=== PATIENT | female | born 1940 | race Caucasian/White ===

== ENCOUNTER → 2016-05-06 | Outpatient (CLI) | payer MEDICARE, BC ==
[2016-05-06 10:33] LABS: ABSOLUTE BASOPHILS # (AUTO) 0.1 10^3/uL (0.0-0.2); ABSOLUTE EOSINOPHILS # (AUTO) 0.1 10^3/uL (0.0-0.6); ABSOLUTE LYMPHOCYTES (AUTO) 0.7 10^3/uL (0.5-4.7); ABSOLUTE MONOCYTES (AUTO) 0.6 10^3/uL (0.1-1.4); ABSOLUTE NEUT (AUTO) 4.9 10^3/uL (1.7-8.2); BASOPHILS % (AUTO) 0.9 % (0-2); EOSINOPHILS % (AUTO) 1.3 % (0-6); HEMATOCRIT 35.7 % (36.0-47.0); HEMOGLOBIN 11.8 g/dL (12.0-15.5); HGB HCT DIFFERENCE -0.3; LYMPHOCYTES % (AUTO) 11.4 % (13-45); MEAN CORPUSCULAR HEMOGLOBIN 33.5 pg (27.0-33.4); MEAN CORPUSCULAR HGB CONC 33.1 g/dL (32.0-36.0); MEAN CORPUSCULAR VOLUME 101 fl (80-97); MONOCYTES % (AUTO) 9.3 % (3-13); RED BLOOD COUNT 3.53 10^6/uL (3.72-5.28); RED CELL DISTRIBUTION WIDTH 15.4 % (11.5-14.0); SEGMENTED NEUTROPHILS % (AUTO) 77.1 % (42-78); WHITE BLOOD COUNT 6.4 10^3/uL (4.0-10.5)
[2016-05-06 10:57] LABS: ALBUMIN 4.1 g/dL (3.5-5.0); BILIRUBIN,DIRECT 0.3 mg/dL (0.0-0.3); BILIRUBIN,TOTAL 0.7 mg/dL (0.2-1.3); TOTAL PROTEIN 6.6 g/dL (6.3-8.2)
== END ==
LOC: OD 09:34
PROVIDERS: ATTEND Internal Medicine Gastroenterology
DX: K51.00 Ulcerative (chronic) pancolitis without complications (principal)
CPT/HCPCS: 36415; 80076; 85025

== ENCOUNTER → 2016-07-17 | Outpatient (CLI) | payer MEDICARE, BC ==
[2016-07-17 10:09] LABS: ALANINE AMINOTRANSFERASE 66 U/L (9-52); ALBUMIN 4.6 g/dL (3.5-5.0); ALKALINE PHOSPHATASE 53 U/L (38-126); ANION GAP 11 (5-19); ASPARTATE AMINO TRANSFERASE 42 U/L (14-36); BILIRUBIN,DIRECT 0.5 mg/dL (0.0-0.4); BLOOD UREA NITROGEN 15 mg/dL (7-20); CALCIUM 9.6 mg/dL (8.4-10.2); CARBON DIOXIDE 28 mmol/L (22-30); CHLORIDE 90 mmol/L (98-107); CHOLESTEROL 219.29 mg/dL (0-200); CREATININE RESULT 0.72 mg/dL (0.52-1.25); Direct HDL 34 mg/dL (>40); GLUCOSE 96 mg/dL (75-110); POTASSIUM 4.9 mmol/L (3.6-5.0); SODIUM 129.1 mmol/L (137-145); TOTAL PROTEIN 7.1 g/dL (6.3-8.2); TRIGLYCERIDES 263 mg/dL (<150)
[2016-07-17 10:20] LABS: DIRECT LDL 103 mg/dL (<100)
[2016-07-17 10:24] LABS: VLDL CHOLESTEROL 52.6 mg/dL (10-31)
== END ==
LOC: OD 09:13
PROVIDERS: ATTEND Internal Medicine
DX: I25.10 Atherosclerotic heart disease of native coronary artery without angina pectoris (principal); Z98.61 Coronary angioplasty status; E78.4 Other hyperlipidemia; I42.8 Other cardiomyopathies; I10 Essential (primary) hypertension; R94.5 Abnormal results of liver function studies; Z79.899 Other long term (current) drug therapy
CPT/HCPCS: 36415; 80053; 80061

== ENCOUNTER → 2016-07-30 | Outpatient (CLI) | payer MEDICARE, BC ==
[2016-07-30 10:37] LABS: ABSOLUTE EOSINOPHILS # (AUTO) 0.1 10^3/uL (0.0-0.6); ABSOLUTE LYMPHOCYTES (AUTO) 0.7 10^3/uL (0.5-4.7); ABSOLUTE MONOCYTES (AUTO) 0.6 10^3/uL (0.1-1.4); ABSOLUTE NEUT (AUTO) 3.5 10^3/uL (1.7-8.2); BASOPHILS % (AUTO) 0.5 % (0-2); EOSINOPHILS % (AUTO) 2.6 % (0-6); HEMATOCRIT 36.6 % (36.0-47.0); HEMOGLOBIN 12.4 g/dL (12.0-15.5); HGB HCT DIFFERENCE 0.6; LYMPHOCYTES % (AUTO) 13.7 % (13-45); MEAN CORPUSCULAR HEMOGLOBIN 34.5 pg (27.0-33.4); MEAN CORPUSCULAR VOLUME 102 fl (80-97); MONOCYTES % (AUTO) 11.9 % (3-13); RED BLOOD COUNT 3.61 10^6/uL (3.72-5.28); RED CELL DISTRIBUTION WIDTH 14.4 % (11.5-14.0); SEGMENTED NEUTROPHILS % (AUTO) 71.3 % (42-78); WHITE BLOOD COUNT 4.9 10^3/uL (4.0-10.5)
[2016-07-30 11:14] LABS: ALANINE AMINOTRANSFERASE 58 U/L (9-52); ALBUMIN 4.3 g/dL (3.5-5.0); ALKALINE PHOSPHATASE 52 U/L (38-126); ASPARTATE AMINO TRANSFERASE 38 U/L (14-36); BILIRUBIN,DIRECT 0.4 mg/dL (0.0-0.4); BILIRUBIN,TOTAL 0.7 mg/dL (0.2-1.3)
== END ==
LOC: OD 10:08
PROVIDERS: ATTEND Internal Medicine Gastroenterology
DX: K51.00 Ulcerative (chronic) pancolitis without complications (principal)
CPT/HCPCS: 36415; 80076; 85025

== ENCOUNTER → 2016-09-26 | Outpatient (CLI) | payer MEDICARE, BC ==
--- NOTE | 2016-09-26 17:16 | RADIOLOGY REPORT (SQ) ---
EXAM DESCRIPTION: MRI HEAD WITHOUT COMPLETED DATE/TIME: 09/26/2016 4:58 pm REASON FOR STUDY: HEMIPLEGIA, UNSPECIFIED G81.91 HEMIPLEGIA, UNSPECIFIED AFFECTING RIGHT DOMINANT S LAVERNE COMPARISON: None. TECHNIQUE: Multiplanar imaging includes non-contrasted T1, T2, FLAIR, and diffusion with ADC map seq uences. Images stored on PACS. LIMITATIONS: None. FINDINGS: ANATOMY: No developmental anomalies. Normal vascular flow voids. Pituitary fossa normal. CSF SPACES: Normal in size and contour. No hemorrhage. CEREBRUM: Sulci and gyri normal in size and contour. Age-appropriate spotty increased bifrontal whit e matter signal on FLAIR imaging from minimal chronic small vessel disease. . No evidence of hemorr elroy, mass, or extraaxial fluid collection. POSTERIOR FOSSA: Tiny nonhemorrhagic early subacute pontine infarct, positive on diffusion image 10, seen as increased FLAIR/ T2 signal on image 10. No hemorrhagic staining. No local mass effect. Rem ainder of the posterior fossa structures are otherwise unremarkable. DIFFUSION IMAGING: Negative for acute or sub-acute infarction. ORBITS: No masses. Post left cataract surgery. PARANASAL SINUSES: No fluid levels. Mucosa normal. OTHER: Minimal fluid left mastoid air cells. IMPRESSION: Tiny nonhemorrhagic early subacute infarct left vijaya. COMMENT: Pertinent findings on the imaging study reported as a CRITICAL RESULT to Wendy SAN at 17:00 on 09/26/2016. Category of Critical Result: Nonhemorrhagic acute or subacute infarct TECHNICAL DOCUMENTATION: JOB ID: [id number] [employer]- All Rights Reserved
== END ==
LOC: RAD 16:05
PROVIDERS: ATTEND Physician Assistant
DX: G81.91 Hemiplegia, unspecified affecting right dominant side (principal)
CPT/HCPCS: 70551

== ENCOUNTER → 2016-11-08 | Outpatient (CLI) | payer MEDICARE, BC ==
[2016-11-08 13:34] LABS: ABSOLUTE BASOPHILS # (AUTO) 0.1 10^3/uL (0.0-0.2); ABSOLUTE EOSINOPHILS # (AUTO) 0.1 10^3/uL (0.0-0.6); ABSOLUTE LYMPHOCYTES (AUTO) 0.8 10^3/uL (0.5-4.7); ABSOLUTE MONOCYTES (AUTO) 0.8 10^3/uL (0.1-1.4); BASOPHILS % (AUTO) 1.1 % (0-2); EOSINOPHILS % (AUTO) 1.9 % (0-6); HEMATOCRIT 37.6 % (36.0-47.0); HEMOGLOBIN 12.9 g/dL (12.0-15.5); HGB HCT DIFFERENCE 1.1; LYMPHOCYTES % (AUTO) 12.4 % (13-45); MEAN CORPUSCULAR HEMOGLOBIN 34.5 pg (27.0-33.4); MEAN CORPUSCULAR HGB CONC 34.3 g/dL (32.0-36.0); MEAN CORPUSCULAR VOLUME 101 fl (80-97); RED BLOOD COUNT 3.74 10^6/uL (3.72-5.28); SEGMENTED NEUTROPHILS % (AUTO) 72.6 % (42-78); WHITE BLOOD COUNT 6.9 10^3/uL (4.0-10.5)
[2016-11-08 13:55] LABS: ALANINE AMINOTRANSFERASE 109 U/L (9-52); ALBUMIN 4.6 g/dL (3.5-5.0); ALKALINE PHOSPHATASE 72 U/L (38-126); ASPARTATE AMINO TRANSFERASE 53 U/L (14-36); BILIRUBIN,DIRECT 0.9 mg/dL (0.0-0.4); TOTAL PROTEIN 7.5 g/dL (6.3-8.2)
== END ==
LOC: OD 12:30
PROVIDERS: ATTEND Internal Medicine Gastroenterology
DX: K51.00 Ulcerative (chronic) pancolitis without complications (principal)
CPT/HCPCS: 36415; 80076; 85025

== ENCOUNTER → 2016-11-26 | Outpatient (CLI) | payer MEDICARE, BC ==
--- NOTE | 2016-11-27 13:57 | WOMENS IMAGING REPORT ---
EXAM DESCRIPTION: 3D SCREENING MAMMO BILAT COMPLETED DATE/TIME: 11/26/2016 10:45 am REASON FOR STUDY: SCREENING MAMMO; Z12.31 COMPARISON: Multiple since 2008 TECHNIQUE: Standard craniocaudal and mediolateral oblique views of each breast recorded using digita l acquisition and breast tomosynthesis. LIMITATIONS: None. FINDINGS: Findings present which are benign by mammographic criteria. No suspicious masses, calcifi cations or architectural distortion. Pertinent benign findings: Stable benign bilateral breast parenchymal calcifications Read with the assistance of CAD. .[facility] - R2 Cenova Version 1.3 .[facility] - R2 Cenova Version 1.3 .[facility] - R2 Cenova Version 2.4 .[facility] - R2 Cenova Version 2.4 .[facility] - R2 Rn Case Manager Version 9.2 Benign mammographic findings may include one or more of the following: Smooth masses, popcorn/rim/co arse calcifications, asymmetries, post-procedure changes, and lesions with long-standing stability. IMPRESSION: BENIGN MAMMOGRAPHIC FINDINGS. BIRADS 2 BREAST DENSITY: b. There are scattered areas of fibroglandular density. BIRAD: 2 BENIGN FINDING(S) RECOMMENDATION: RECOMMENDATION: ROUTINE SCREENING Please continue yearly bilateral screening tomosynthesis in October 2017 COMMENT: The patient has been notified of the results by letter per SA requirements. Additional no tification policies are in place for contacting patient with suspicious or incomplete findings. Quality ID #[id number]: The [employer] recommends an annual screening mammogram for women aged 40 years or over. This facility utilizes a reminder system to ensure that all patients receive reminder letters, and/or direct phone calls for appointments. This includes reminders for routine scr eening mammograms, diagnostic mammograms, or other Breast Imaging Interventions when appropriate. Th is patient will be placed in the appropriate reminder system. The [employer] (ACR) has developed recommendations for screening MRI of the breast s in certain patient populations, to be used in conjunction with mammography. Breast MRI surveillanc e may be appropriate for women with more than 20% lifetime risk of developing breast cancer as deter mined by genetic testing, significant family history of the disease, or history of mantle radiation f or Hodgkins Disease. ACR Practice Guidelines 2008. DBT Technology DBT is a type of tomographic mammography. With conventional mammography, overlapping breast tissue ma y make lesions difficult to detect, even with good compression. DBT uses an x-ray tube that rotates a round the breast, taking images at different angles. These images are then combined to create thin sl ices of the breast that the radiologist can view as a 3D reconstruction. The Hologic unit can perform full-field digital mammograms (2D imaging); or DBT (3D imaging); or both, in a combination mode that quickly performs both the mammogram and the tomosynthesis scan while the breast is still compressed. PQRS 6045F: Fluoroscopic imaging is not utilized for breast tomosynthesis. TECHNICAL DOCUMENTATION: FINDING NUMBER: (1) ASSESSMENT: (1) JOB ID: [id number] [employer]- All Rights Reserved
== END ==
LOC: WI 09:05
PROVIDERS: ATTEND Internal Medicine
DX: Z12.31 Encounter for screening mammogram for malignant neoplasm of breast (principal)
CPT/HCPCS: 77063; G0202; 77067

== ENCOUNTER → 2016-11-28 | Outpatient (CLI) | payer MEDICARE, BC ==
--- NOTE | 2016-12-03 19:08 | XCELERA REPORT ---
[address] [address] Transthoracic Echocardiogram Report Name: VAN DARLING Age: 76 yrs Gender: Female : 1940 Patient Status: Outpatient Patient Location: Study Date: 11/28/2016 11:05 AM Procedure: A two-dimensional transthoracic echocardiogram with color flow and Doppler was performed. Study Quality: Fair. Reason For Study: CP R07.9 History: CP R07.9. Ordering Physician: CHERYL UP Performed By: Tone Salvador Interpretation Summary The left ventricle is normal in size. There is normal left ventricular wall thickness. LV EF is 55% Left ventricular systolic function is low normal. Doppler measurements suggest impaired left ventricular relaxation, which is associated with grade I/IV or mild diastolic dysfunction Probably no regional wall motion abnormality. There is no thrombus. The right ventricle is normal in size and function. The left atrial size is normal. There is no evidence of mitral valve prolapse. There is no vegetation seen on the mitral valve. There is no mitral valve stenosis. There is a trace to mild amount of mitral regurgitation There is no aortic valve stenosis There is no LVOT obstruction. There is a mild amount of aortic regurgitation There is no tricuspid stenosis. There is a trace to mild amount of tricuspid regurgitation There is mild pulmonary hypertension by echo RVSP is 35 mm of Hg , with RA mean of 10. There is no pericardial effusion. MMode/2D Measurements & Calculations RVDd: 2.0 cm LVIDd: 4.2 cm FS: 27.9 % Ao root diam: 3.4 cm IVSd: 1.0 cm LVIDs: 3.0 cm EDV(Teich): 79.2 ml Ao root area: 9.3 cm2 LVPWd: 0.90 cm ESV(Teich): 36.1 ml EF(Teich): 54.4 % Doppler Measurements & Calculations MV E max april: MV dec slope: Ao V2 max: AI max april: 62.9 cm/sec 252.4 cm/sec2 111.8 cm/sec 387.2 cm/sec MV A max april: MV dec time: Ao max PG: AI max P.2 cm/sec 0.25 sec 5.0 mmHg 60.1 mmHg MV E/A: 0.52 AI dec slope: 239.7 cm/sec2 AI P1/2t: 473.0 msec LV V1 max PG: PA V2 max: TR max april: RAP systole: 3.0 mmHg 74.0 cm/sec 270.3 cm/sec 5.0 mmHg LV V1 max: PA max P.2 mmHgTR max P.2 cm/sec 29.2 mmHg RVSP(TR): 34.2 mmHg Left Ventricle The left ventricle is normal in size. There is normal left ventricular wall thickness. LV EF is 55%. Left ventricular systolic function is low normal. Doppler measurements suggest impaired left ventricular relaxation, which is associated with grade I/IV or mild diastolic dysfunction. Probably no regional wall motion abnormality. There is no thrombus. Right Ventricle The right ventricle is normal in size and function. Atria The right atrium is normal. The left atrial size is normal. Mitral Valve There is no evidence of mitral valve prolapse. There is no vegetation seen on the mitral valve. There is no mitral valve stenosis. There is a trace to mild amount of mitral regurgitation. Aortic Valve There is no aortic valvular vegetation. There is no aortic valve stenosis. There is no LVOT obstruction. There is a mild amount of aortic regurgitation. Tricuspid Valve There is no tricuspid stenosis. There is a trace to mild amount of tricuspid regurgitation. There is mild pulmonary hypertension by echo. RVSP is 35 mm of Hg , with RA mean of 10. Pulmonic Valve There is no pulmonic valvular stenosis. There is a trace amount of pulmonic regurgitation. Great Vessels The aortic root is normal size. Effusions There is no pericardial effusion. : CHERYL UP > Cheryl Up
== END ==
LOC: SP 10:45
PROVIDERS: ATTEND Specialist
DX: R07.9 Chest pain, unspecified (principal)
CPT/HCPCS: 93306

== ENCOUNTER → 2016-12-04 | Outpatient (CLI) | payer MEDICARE, BC ==
[2016-12-04 11:48] LABS: ALANINE AMINOTRANSFERASE 61 U/L (9-52); ALBUMIN 4.5 g/dL (3.5-5.0); ALKALINE PHOSPHATASE 62 U/L (38-126); ASPARTATE AMINO TRANSFERASE 36 U/L (14-36)
== END ==
LOC: OD 10:32
PROVIDERS: ATTEND Internal Medicine Gastroenterology
DX: R94.5 Abnormal results of liver function studies (principal)
CPT/HCPCS: 36415; 80076

== ENCOUNTER → 2017-01-16 | Outpatient (CLI) | payer MEDICARE, BC ==
[2017-01-16 10:09] LABS: ALANINE AMINOTRANSFERASE 156 U/L (9-52); ALBUMIN 4.3 g/dL (3.5-5.0); ALKALINE PHOSPHATASE 61 U/L (38-126); ANION GAP 12 (5-19); ASPARTATE AMINO TRANSFERASE 63 U/L (14-36); BILIRUBIN,DIRECT 1.1 mg/dL (0.0-0.4); BILIRUBIN,TOTAL 1.1 mg/dL (0.2-1.3); BLOOD UREA NITROGEN 17 mg/dL (7-20); CALCIUM 9.1 mg/dL (8.4-10.2); CARBON DIOXIDE 29 mmol/L (22-30); CHLORIDE 90 mmol/L (98-107); CHOLESTEROL 171.65 mg/dL (0-200); CREATININE RESULT 0.85 mg/dL (0.52-1.25); Direct HDL 41 mg/dL (>40); GLUCOSE 102 mg/dL (75-110); POTASSIUM 4.7 mmol/L (3.6-5.0); SODIUM 130.9 mmol/L (137-145); TOTAL PROTEIN 6.9 g/dL (6.3-8.2); TRIGLYCERIDES 94 mg/dL (<150)
[2017-01-16 10:20] LABS: DIRECT LDL 89 mg/dL (<100)
== END ==
LOC: OD 09:04
PROVIDERS: ATTEND Internal Medicine
DX: I25.10 Atherosclerotic heart disease of native coronary artery without angina pectoris (principal); Z98.61 Coronary angioplasty status; E78.4 Other hyperlipidemia; I42.8 Other cardiomyopathies; I10 Essential (primary) hypertension; R94.5 Abnormal results of liver function studies; Z79.899 Other long term (current) drug therapy
CPT/HCPCS: 36415; 80053; 80061

== ENCOUNTER → 2017-02-06 | Outpatient (CLI) | payer MEDICARE, BC ==
[2017-02-06 13:58] LABS: ALANINE AMINOTRANSFERASE 122 U/L (9-52); ALBUMIN 4.7 g/dL (3.5-5.0); ALKALINE PHOSPHATASE 62 U/L (38-126); ASPARTATE AMINO TRANSFERASE 58 U/L (14-36); BILIRUBIN,DIRECT 0.9 mg/dL (0.0-0.4); BILIRUBIN,TOTAL 1.3 mg/dL (0.2-1.3); BLOOD UREA NITROGEN 12 mg/dL (7-20); CALCIUM 9.7 mg/dL (8.4-10.2); CARBON DIOXIDE 30 mmol/L (22-30); CHLORIDE 85 mmol/L (98-107); CREATININE RESULT 0.79 mg/dL (0.52-1.25); GLUCOSE 117 mg/dL (75-110); POTASSIUM 4.5 mmol/L (3.6-5.0); TOTAL PROTEIN 7.3 g/dL (6.3-8.2)
[2017-02-06 13:59] LABS: ANION GAP 12 (5-19)
[2017-02-06 14:05] LABS: ALANINE AMINOTRANSFERASE 122 U/L (9-52); ALBUMIN 4.7 g/dL (3.5-5.0); ALKALINE PHOSPHATASE 62 U/L (38-126); ASPARTATE AMINO TRANSFERASE 58 U/L (14-36); BILIRUBIN,DIRECT 0.9 mg/dL (0.0-0.4); BILIRUBIN,TOTAL 1.3 mg/dL (0.2-1.3)
[2017-02-06 14:06] LABS: TOTAL PROTEIN 7.3 g/dL (6.3-8.2)
== END ==
LOC: OD 12:18
PROVIDERS: ATTEND Internal Medicine Gastroenterology
DX: R94.5 Abnormal results of liver function studies (principal); E55.9 Vitamin D deficiency, unspecified; R63.5 Abnormal weight gain; E87.1 Hypo-osmolality and hyponatremia
CPT/HCPCS: 36415; 80053; 80076; 82306; 84443

== ENCOUNTER → 2017-02-10 | Outpatient (CLI) | payer MEDICARE, BC ==
[2017-02-11 07:42] LABS: HEPATITIS C VIRUS AB <0.1 s/co ratio (0.0-0.9)
== END ==
LOC: OD 09:07
PROVIDERS: ATTEND Internal Medicine Gastroenterology
DX: R94.5 Abnormal results of liver function studies (principal)
CPT/HCPCS: 36415; 86038; 86235; 86256; 86706; 86803; 86804; 87340

== ENCOUNTER → 2017-02-10 | Outpatient (CLI) | payer MEDICARE, BC ==
--- NOTE | 2017-02-10 12:00 | WOMENS IMAGING REPORT ---
EXAM DESCRIPTION: U/S ABDOMEN LIMITED COMPLETED DATE/TIME: 02/10/2017 10:23 am REASON FOR STUDY: ABNORMAL RESULTS OF LIVER FUNCTION; R94.5 R94.5 ABNORMAL RESULTS OF LIVER FUNCTIO N STUDIES COMPARISON: None. TECHNIQUE: Dynamic and static grayscale images acquired of the abdomen and recorded on PACS. Additio nal selected color Doppler and spectral images recorded. LIMITATIONS: None. FINDINGS: PANCREAS: No masses. No peripancreatic edema or fluid collections. LIVER: Echotexture is coarse with increased echogenicity consistent with fatty infiltration. LIVER VASCULATURE: Normal directional flow of the main portal vein and hepatic veins. GALLBLADDER: Surgically absent. ULTRASOUND-DETECTED WHITTAKER'S SIGN: Not applicable. INTRAHEPATIC DUCTS AND COMMON DUCT: CBD and intrahepatic ducts normal caliber. No filling defects. INFERIOR VENA CAVA: Normal flow. AORTA: No aneurysm. RIGHT KIDNEY: Normal size. 3.5 cm cyst. No solid or suspicious masses. No hydronephrosis. No calcifications. PERITONEAL AND RIGHT PLEURAL SPACE: No ascites or effusions. OTHER: No other significant finding. IMPRESSION: Fatty liver. No acute findings. TECHNICAL DOCUMENTATION: JOB ID: [id number]- All Rights Reserved
== END ==
LOC: WI 09:45
PROVIDERS: ATTEND Internal Medicine Gastroenterology
DX: R94.5 Abnormal results of liver function studies (principal)
CPT/HCPCS: 76705

== ENCOUNTER → 2017-03-12 | Outpatient (CLI) | payer MEDICARE, BC ==
[2017-03-12 11:52] LABS: ABSOLUTE BASOPHILS # (AUTO) 0.1 10^3/uL (0.0-0.2); ABSOLUTE EOSINOPHILS # (AUTO) 0.1 10^3/uL (0.0-0.6); ABSOLUTE LYMPHOCYTES (AUTO) 0.8 10^3/uL (0.5-4.7); ABSOLUTE MONOCYTES (AUTO) 0.6 10^3/uL (0.1-1.4); ABSOLUTE NEUT (AUTO) 4.7 10^3/uL (1.7-8.2); BASOPHILS % (AUTO) 1.5 % (0-2); EOSINOPHILS % (AUTO) 1.8 % (0-6); HEMATOCRIT 37.9 % (36.0-47.0); HEMOGLOBIN 12.9 g/dL (12.0-15.5); HGB HCT DIFFERENCE 0.8; LYMPHOCYTES % (AUTO) 12.7 % (13-45); MEAN CORPUSCULAR HEMOGLOBIN 35.6 pg (27.0-33.4); MEAN CORPUSCULAR VOLUME 105 fl (80-97); MONOCYTES % (AUTO) 9.2 % (3-13); RED BLOOD COUNT 3.61 10^6/uL (3.72-5.28); RED CELL DISTRIBUTION WIDTH 14.9 % (11.5-14.0); SEGMENTED NEUTROPHILS % (AUTO) 74.8 % (42-78); WHITE BLOOD COUNT 6.2 10^3/uL (4.0-10.5)
[2017-03-12 12:21] LABS: ALANINE AMINOTRANSFERASE 51 U/L (9-52); ALBUMIN 4.6 g/dL (3.5-5.0); ALKALINE PHOSPHATASE 49 U/L (38-126); ASPARTATE AMINO TRANSFERASE 35 U/L (14-36); BILIRUBIN,DIRECT 0.9 mg/dL (0.0-0.4); BILIRUBIN,TOTAL 0.9 mg/dL (0.2-1.3); TOTAL PROTEIN 6.7 g/dL (6.3-8.2)
== END ==
LOC: OD 10:38
PROVIDERS: ATTEND Internal Medicine Gastroenterology
DX: K51.00 Ulcerative (chronic) pancolitis without complications (principal)
CPT/HCPCS: 36415; 80076; 85025

== ENCOUNTER → 2017-05-01 | Outpatient (CLI) | payer MEDICARE, BC ==
[2017-05-01 10:50] LABS: ALANINE AMINOTRANSFERASE 53 U/L (9-52); ALBUMIN 4.7 g/dL (3.5-5.0); ALKALINE PHOSPHATASE 65 U/L (38-126); ANION GAP 8 (5-19); ASPARTATE AMINO TRANSFERASE 44 U/L (14-36); BILIRUBIN,DIRECT 1.3 mg/dL (0.0-0.4); BILIRUBIN,TOTAL 1.3 mg/dL (0.2-1.3); BLOOD UREA NITROGEN 20 mg/dL (7-20); CARBON DIOXIDE 30 mmol/L (22-30); CHLORIDE 90 mmol/L (98-107); GLUCOSE 105 mg/dL (75-110); POTASSIUM 4.8 mmol/L (3.6-5.0); SODIUM 127.9 mmol/L (137-145); TOTAL PROTEIN 7.3 g/dL (6.3-8.2)
== END ==
LOC: OD 09:45
PROVIDERS: ATTEND Internal Medicine
DX: E55.9 Vitamin D deficiency, unspecified (principal); R63.5 Abnormal weight gain; E87.1 Hypo-osmolality and hyponatremia
CPT/HCPCS: 36415; 80053; 82306; 84443

== ENCOUNTER → 2017-06-10 | Outpatient (CLI) | payer MEDICARE, BC ==
[2017-06-10 10:59] LABS: ABSOLUTE EOSINOPHILS # (AUTO) 0.1 10^3/uL (0.0-0.6); ABSOLUTE LYMPHOCYTES (AUTO) 0.8 10^3/uL (0.5-4.7); ABSOLUTE MONOCYTES (AUTO) 0.6 10^3/uL (0.1-1.4); BASOPHILS % (AUTO) 0.7 % (0-2); EOSINOPHILS % (AUTO) 2.2 % (0-6); HEMATOCRIT 37.9 % (36.0-47.0); HEMOGLOBIN 12.8 g/dL (12.0-15.5); LYMPHOCYTES % (AUTO) 13.7 % (13-45); MEAN CORPUSCULAR HEMOGLOBIN 34.1 pg (27.0-33.4); MEAN CORPUSCULAR HGB CONC 33.9 g/dL (32.0-36.0); MEAN CORPUSCULAR VOLUME 101 fl (80-97); MONOCYTES % (AUTO) 10.9 % (3-13); PLATELET COUNT 228 10^3/uL (150-450); RED BLOOD COUNT 3.76 10^6/uL (3.72-5.28); RED CELL DISTRIBUTION WIDTH 14.4 % (11.5-14.0); SEGMENTED NEUTROPHILS % (AUTO) 72.5 % (42-78); TOTAL CELLS COUNTED % (AUTO) 100 %; WHITE BLOOD COUNT 5.5 10^3/uL (4.0-10.5)
[2017-06-10 11:25] LABS: ALANINE AMINOTRANSFERASE 54 U/L (9-52); ALBUMIN 4.7 g/dL (3.5-5.0); ALKALINE PHOSPHATASE 54 U/L (38-126); ASPARTATE AMINO TRANSFERASE 33 U/L (14-36); BILIRUBIN,DIRECT 0.9 mg/dL (0.0-0.4); BILIRUBIN,TOTAL 0.9 mg/dL (0.2-1.3); TOTAL PROTEIN 7.1 g/dL (6.3-8.2)
== END ==
LOC: OD 10:01
PROVIDERS: ATTEND Internal Medicine Gastroenterology
DX: K51.00 Ulcerative (chronic) pancolitis without complications (principal)
CPT/HCPCS: 36415; 80076; 85025

== ENCOUNTER → 2017-07-15 | Outpatient (CLI) | payer MEDICARE, BC ==
[2017-07-15 11:04] LABS: ABSOLUTE EOSINOPHILS # (AUTO) 0.1 10^3/uL (0.0-0.6); ABSOLUTE LYMPHOCYTES (AUTO) 0.8 10^3/uL (0.5-4.7); ABSOLUTE MONOCYTES (AUTO) 0.7 10^3/uL (0.1-1.4); ABSOLUTE NEUT (AUTO) 3.8 10^3/uL (1.7-8.2); BASOPHILS % (AUTO) 0.7 % (0-2); EOSINOPHILS % (AUTO) 2.4 % (0-6); HEMATOCRIT 35.8 % (36.0-47.0); LYMPHOCYTES % (AUTO) 15.4 % (13-45); MEAN CORPUSCULAR HEMOGLOBIN 35.6 pg (27.0-33.4); MEAN CORPUSCULAR HGB CONC 33.5 g/dL (32.0-36.0); MEAN CORPUSCULAR VOLUME 106 fl (80-97); MONOCYTES % (AUTO) 12.3 % (3-13); PLATELET COUNT 205 10^3/uL (150-450); RED BLOOD COUNT 3.37 10^6/uL (3.72-5.28); RED CELL DISTRIBUTION WIDTH 15.6 % (11.5-14.0); SEGMENTED NEUTROPHILS % (AUTO) 69.2 % (42-78); TOTAL CELLS COUNTED % (AUTO) 100 %; WHITE BLOOD COUNT 5.5 10^3/uL (4.0-10.5)
[2017-07-15 11:29] LABS: ALANINE AMINOTRANSFERASE 70 U/L (9-52); ALBUMIN 4.2 g/dL (3.5-5.0); ALKALINE PHOSPHATASE 49 U/L (38-126); ASPARTATE AMINO TRANSFERASE 46 U/L (14-36); TOTAL PROTEIN 6.8 g/dL (6.3-8.2)
== END ==
LOC: OD 09:41
PROVIDERS: ATTEND Internal Medicine Gastroenterology
DX: K51.00 Ulcerative (chronic) pancolitis without complications (principal)
CPT/HCPCS: 36415; 80076; 85025

== ENCOUNTER → 2017-08-19 | Outpatient (CLI) | payer MEDICARE, BC ==
[2017-08-19 11:00] LABS: ABSOLUTE EOSINOPHILS # (AUTO) 0.1 10^3/uL (0.0-0.6); ABSOLUTE LYMPHOCYTES (AUTO) 0.8 10^3/uL (0.5-4.7); ABSOLUTE MONOCYTES (AUTO) 0.6 10^3/uL (0.1-1.4); ABSOLUTE NEUT (AUTO) 4.6 10^3/uL (1.7-8.2); BASOPHILS % (AUTO) 0.6 % (0-2); HEMATOCRIT 39.7 % (36.0-47.0); HEMOGLOBIN 13.4 g/dL (12.0-15.5); LYMPHOCYTES % (AUTO) 12.9 % (13-45); MEAN CORPUSCULAR HEMOGLOBIN 34.4 pg (27.0-33.4); MEAN CORPUSCULAR HGB CONC 33.7 g/dL (32.0-36.0); MEAN CORPUSCULAR VOLUME 102 fl (80-97); MONOCYTES % (AUTO) 9.3 % (3-13); PLATELET COUNT 203 10^3/uL (150-450); RED CELL DISTRIBUTION WIDTH 14.2 % (11.5-14.0); SEGMENTED NEUTROPHILS % (AUTO) 75.2 % (42-78); TOTAL CELLS COUNTED % (AUTO) 100 %; WHITE BLOOD COUNT 6.1 10^3/uL (4.0-10.5)
[2017-08-19 11:24] LABS: ALANINE AMINOTRANSFERASE 43 U/L (9-52); ALBUMIN 4.4 g/dL (3.5-5.0); ALKALINE PHOSPHATASE 57 U/L (38-126); ANION GAP 14 (5-19); ASPARTATE AMINO TRANSFERASE 37 U/L (14-36); BILIRUBIN,DIRECT 0.6 mg/dL (0.0-0.4); BILIRUBIN,TOTAL 0.8 mg/dL (0.2-1.3); BLOOD UREA NITROGEN 17 mg/dL (7-20); CALCIUM 10.1 mg/dL (8.4-10.2); CARBON DIOXIDE 31 mmol/L (22-30); CHLORIDE 95 mmol/L (98-107); CHOLESTEROL 257.64 mg/dL (0-200); GLUCOSE 111 mg/dL (75-110); NEONATAL BILIRUBIN RESULT 0.2 mg/dL (0.1-1.1); POTASSIUM 4.7 mmol/L (3.6-5.0); TOTAL PROTEIN 7.4 g/dL (6.3-8.2); TRIGLYCERIDES 200 mg/dL (<150)
[2017-08-19 11:35] LABS: DIRECT LDL 151 mg/dL (<100)
[2017-08-19 11:38] LABS: ALBUMIN 4.4 g/dL (3.5-5.0); BILIRUBIN,DIRECT 0.6 mg/dL (0.0-0.4); BILIRUBIN,TOTAL 0.8 mg/dL (0.2-1.3); NEONATAL BILIRUBIN RESULT 0.2 mg/dL (0.1-1.1); TOTAL PROTEIN 7.4 g/dL (6.3-8.2)
== END ==
LOC: OD 09:38
PROVIDERS: ATTEND Internal Medicine
DX: E55.9 Vitamin D deficiency, unspecified (principal); E78.2 Mixed hyperlipidemia; I10 Essential (primary) hypertension; D63.8 Anemia in other chronic diseases classified elsewhere; R94.5 Abnormal results of liver function studies
CPT/HCPCS: 36415; 80053; 80061; 80076; 82306; 85025

== ENCOUNTER → 2017-11-11 | Outpatient (CLI) | payer MEDICARE, BC ==
[2017-11-11 10:51] LABS: ABSOLUTE EOSINOPHILS # (AUTO) 0.2 10^3/uL (0.0-0.6); ABSOLUTE LYMPHOCYTES (AUTO) 0.8 10^3/uL (0.5-4.7); ABSOLUTE MONOCYTES (AUTO) 0.5 10^3/uL (0.1-1.4); ABSOLUTE NEUT (AUTO) 3.3 10^3/uL (1.7-8.2); BASOPHILS % (AUTO) 0.7 % (0-2); EOSINOPHILS % (AUTO) 3.2 % (0-6); HEMATOCRIT 39.8 % (36.0-47.0); HEMOGLOBIN 13.6 g/dL (12.0-15.5); LYMPHOCYTES % (AUTO) 15.9 % (13-45); MEAN CORPUSCULAR HEMOGLOBIN 33.8 pg (27.0-33.4); MEAN CORPUSCULAR HGB CONC 34.1 g/dL (32.0-36.0); MEAN CORPUSCULAR VOLUME 99 fl (80-97); MONOCYTES % (AUTO) 10.6 % (3-13); PLATELET COUNT 236 10^3/uL (150-450); RED BLOOD COUNT 4.03 10^6/uL (3.72-5.28); SEGMENTED NEUTROPHILS % (AUTO) 69.6 % (42-78); TOTAL CELLS COUNTED % (AUTO) 100 %; WHITE BLOOD COUNT 4.8 10^3/uL (4.0-10.5)
[2017-11-11 11:10] LABS: ALANINE AMINOTRANSFERASE 62 U/L (9-52); ALBUMIN 4.6 g/dL (3.5-5.0); ALKALINE PHOSPHATASE 59 U/L (38-126); ASPARTATE AMINO TRANSFERASE 40 U/L (14-36); BILIRUBIN,DIRECT 0.9 mg/dL (0.0-0.4); TOTAL PROTEIN 7.4 g/dL (6.3-8.2)
== END ==
LOC: OD 10:00
PROVIDERS: ATTEND Internal Medicine Gastroenterology
DX: K51.00 Ulcerative (chronic) pancolitis without complications (principal)
CPT/HCPCS: 36415; 80076; 85025

== ENCOUNTER → 2018-04-28 | Outpatient (CLI) | payer MEDICARE, BC ==
[2018-04-28 10:51] LABS: ABSOLUTE BASOPHILS # (AUTO) 0.1 10^3/uL (0.0-0.2); ABSOLUTE EOSINOPHILS # (AUTO) 0.1 10^3/uL (0.0-0.6); ABSOLUTE LYMPHOCYTES (AUTO) 1.1 10^3/uL (0.5-4.7); ABSOLUTE MONOCYTES (AUTO) 0.5 10^3/uL (0.1-1.4); BASOPHILS % (AUTO) 1.4 % (0-2); EOSINOPHILS % (AUTO) 2.8 % (0-6); HEMATOCRIT 37.9 % (36.0-47.0); LYMPHOCYTES % (AUTO) 23.6 % (13-45); MEAN CORPUSCULAR HEMOGLOBIN 34.3 pg (27.0-33.4); MEAN CORPUSCULAR HGB CONC 34.2 g/dL (32.0-36.0); MEAN CORPUSCULAR VOLUME 100 fl (80-97); MONOCYTES % (AUTO) 10.2 % (3-13); PLATELET COUNT 205 10^3/uL (150-450); RED BLOOD COUNT 3.78 10^6/uL (3.72-5.28); RED CELL DISTRIBUTION WIDTH 15.1 % (11.5-14.0); TOTAL CELLS COUNTED % (AUTO) 100 %; WHITE BLOOD COUNT 4.8 10^3/uL (4.0-10.5)
[2018-04-28 11:17] LABS: ALANINE AMINOTRANSFERASE 28 U/L (9-52); ALBUMIN 4.7 g/dL (3.5-5.0); ALKALINE PHOSPHATASE 56 U/L (38-126); ANION GAP 11 (5-19); ASPARTATE AMINO TRANSFERASE 25 U/L (14-36); BILIRUBIN,DIRECT 0.5 mg/dL (0.0-0.4); BILIRUBIN,TOTAL 0.7 mg/dL (0.2-1.3); BLOOD UREA NITROGEN 27 mg/dL (7-20); CALCIUM 9.7 mg/dL (8.4-10.2); CARBON DIOXIDE 30 mmol/L (22-30); CHLORIDE 97 mmol/L (98-107); CHOLESTEROL 301.98 mg/dL (0-200); GLUCOSE 103 mg/dL (75-110); POTASSIUM 4.1 mmol/L (3.6-5.0); SODIUM 138.1 mmol/L (137-145); TOTAL PROTEIN 7.3 g/dL (6.3-8.2); TRIGLYCERIDES 205 mg/dL (<150)
[2018-04-28 11:31] LABS: DIRECT LDL 172 mg/dL (<100)
== END ==
LOC: OD 09:38
PROVIDERS: ATTEND Internal Medicine
DX: E78.2 Mixed hyperlipidemia (principal); D63.8 Anemia in other chronic diseases classified elsewhere; I10 Essential (primary) hypertension
CPT/HCPCS: 36415; 80053; 80061; 85025

== ENCOUNTER → 2018-07-14 | Outpatient (CLI) | payer MEDICARE, BC ==
[2018-07-14 10:13] LABS: HEMATOCRIT 40.9 % (36.0-47.0); HEMOGLOBIN 13.9 g/dL (12.0-15.5); MEAN CORPUSCULAR HEMOGLOBIN 33.5 pg (27.0-33.4); MEAN CORPUSCULAR HGB CONC 33.9 g/dL (32.0-36.0); MEAN CORPUSCULAR VOLUME 99 fl (80-97); PLATELET COUNT 219 10^3/uL (150-450); RED BLOOD COUNT 4.14 10^6/uL (3.72-5.28); RED CELL DISTRIBUTION WIDTH 15.1 % (11.5-14.0); WHITE BLOOD COUNT 4.4 10^3/uL (4.0-10.5)
[2018-07-14 10:46] LABS: ALANINE AMINOTRANSFERASE 34 U/L (9-52); ALBUMIN 4.3 g/dL (3.5-5.0); ALKALINE PHOSPHATASE 52 U/L (38-126); ANION GAP 7 (5-19); ASPARTATE AMINO TRANSFERASE 28 U/L (14-36); BILIRUBIN,DIRECT 0.6 mg/dL (0.0-0.4); BILIRUBIN,TOTAL 0.8 mg/dL (0.2-1.3); BLOOD UREA NITROGEN 16 mg/dL (7-20); CALCIUM 10.2 mg/dL (8.4-10.2); CARBON DIOXIDE 31 mmol/L (22-30); CHLORIDE 97 mmol/L (98-107); CHOLESTEROL 267.79 mg/dL (0-200); GLUCOSE 108 mg/dL (75-110); SODIUM 134.5 mmol/L (137-145); TOTAL PROTEIN 7.4 g/dL (6.3-8.2); TRIGLYCERIDES 224 mg/dL (<150)
[2018-07-14 10:58] LABS: DIRECT LDL 156 mg/dL (<100)
[2018-07-14 11:04] LABS: VLDL CHOLESTEROL 44.8 mg/dL (10-31)
[2018-07-14 11:06] LABS: ALANINE AMINOTRANSFERASE 34 U/L (9-52); ALBUMIN 4.3 g/dL (3.5-5.0); ALKALINE PHOSPHATASE 52 U/L (38-126); ANION GAP 7 (5-19); ASPARTATE AMINO TRANSFERASE 28 U/L (14-36); BILIRUBIN,DIRECT 0.6 mg/dL (0.0-0.4); BILIRUBIN,TOTAL 0.8 mg/dL (0.2-1.3); BLOOD UREA NITROGEN 16 mg/dL (7-20); CALCIUM 10.2 mg/dL (8.4-10.2); CARBON DIOXIDE 31 mmol/L (22-30); CHLORIDE 97 mmol/L (98-107); CHOLESTEROL 267.79 mg/dL (0-200); DIRECT LDL 156 mg/dL (<100); GLUCOSE 108 mg/dL (75-110); SODIUM 134.5 mmol/L (137-145); TOTAL PROTEIN 7.4 g/dL (6.3-8.2); TRIGLYCERIDES 224 mg/dL (<150); VLDL CHOLESTEROL 44.8 mg/dL (10-31)
[2018-07-14 11:09] LABS: ALANINE AMINOTRANSFERASE 34 U/L (9-52); ALBUMIN 4.3 g/dL (3.5-5.0); ALKALINE PHOSPHATASE 52 U/L (38-126); ANION GAP 7 (5-19); ASPARTATE AMINO TRANSFERASE 28 U/L (14-36); BILIRUBIN,DIRECT 0.6 mg/dL (0.0-0.4); BILIRUBIN,TOTAL 0.8 mg/dL (0.2-1.3); BLOOD UREA NITROGEN 16 mg/dL (7-20); CALCIUM 10.2 mg/dL (8.4-10.2); CARBON DIOXIDE 31 mmol/L (22-30); CHLORIDE 97 mmol/L (98-107); CHOLESTEROL 267.79 mg/dL (0-200); DIRECT LDL 156 mg/dL (<100); GLUCOSE 108 mg/dL (75-110); SODIUM 134.5 mmol/L (137-145); TOTAL PROTEIN 7.4 g/dL (6.3-8.2); TRIGLYCERIDES 224 mg/dL (<150); VLDL CHOLESTEROL 44.8 mg/dL (10-31)
== END ==
LOC: OD 09:10
PROVIDERS: ATTEND Internal Medicine Gastroenterology
DX: I25.10 Atherosclerotic heart disease of native coronary artery without angina pectoris (principal); Z98.61 Coronary angioplasty status; E78.49 Other hyperlipidemia; I42.8 Other cardiomyopathies; I10 Essential (primary) hypertension; R94.5 Abnormal results of liver function studies; I48.0 Paroxysmal atrial fibrillation; K51.00 Ulcerative (chronic) pancolitis without complications; E78.00 Pure hypercholesterolemia, unspecified; N28.9 Disorder of kidney and ureter, unspecified; Z79.899 Other long term (current) drug therapy
CPT/HCPCS: 36415; 80048; 80053; 80061; 80076; 85027

== ENCOUNTER 2018-09-30 09:46 | Observation (INO) | payer MEDICARE, BC ==
--- NOTE | 2018-09-30 10:11 | ER Document Report ---
ED Neuro Symptoms/Deficit - General Chief Complaint: Numbness of Arm Stated Complaint: WEAKNESS Time Seen by Provider: 09/30/18 10:04 Primary Care Provider: KAYLEEN REHMAN MD [Primary Care Provider] - Follow up as needed TRAVEL OUTSIDE OF THE [place] IN LAST 30 DAYS: No - HPI Notes: Patient is a 78-year-old female that presents to the emergency department for chief complaint of numbness and weakness. Patient presented by EMS from [facility]. She states that this morning she noticed she was having a hard time holding onto her utensils while eating breakfast with her right hand. She also states while taking her morning medications she was unable to keep the water in her mouth and spilled it twice. She reports numbness in her right arm and difficulty with coordination in the right arm. She states that nursing providers came in her room at midnight to change her depends and she felt normal then. At 6 AM when she was taking her medication she noticed the symptoms. Patient reports history of 2 mini strokes in the past. She is also complaining of "heartburn" which she describes as a burning sensation in her epigastrium radiating into her midsternal region. She denies dyspnea or palpitations. She states she does have heartburn which she takes Zantac for and this feels identical but she has not had her Zantac yet today and did eat pancakes for breakfast. She denies fever, chills, nausea, vomiting, Vision changes and headache. Past Medical History: TIAs, hypertension, CAD, CHF Past Surgical History: Reviewed in chart Social History: Lives at [facility]. Denies tobacco and alcohol use Family History: Reviewed and noncontributory for presenting illness Allergies: Reviewed, see documented allergy list. REVIEW OF SYSTEMS: CONSTITUTIONAL : No fever No chills No diaphoresis No recent illness EENT: No vision changes No congestion No sore throat CARDIOVASCULAR: No chest pain No palpitations RESPIRATORY: No shortness of breath No cough No difficulty breathing GASTROINTESTINAL: No abdominal pain No nausea No vomiting No diarrhea GENITOURINARY: No dysuria No hematuria No difficulty urinating MUSCULOSKELETAL: No back pain No leg pain No arm pain SKIN: No rashes No lesions LYMPHATIC: No swollen, enlarged glands. NEUROLOGICAL: No lightheadedness No headache weakness paresthesias PSYCHIATRIC: No anxiety No depression PHYSICAL EXAMINATION: Vital signs reviewed, nursing noted reviewed. GENERAL: Well-appearing, well-nourished and in no acute distress. HEAD: Atraumatic, normocephalic. EYES: Eyes appear normal, extraocular movements intact, sclera anicteric, conjunctiva are normal. ENT: nares patent, oropharynx clear without exudates. Moist mucous membranes. NECK: Normal range of motion, supple without lymphadenopathy LUNGS: Breath sounds clear to auscultation bilaterally and equal. No wheezes rales or rhonchi. HEART: Regular rate and rhythm without murmurs ABDOMEN: Soft, nontender, normoactive bowel sounds. No rebound, guarding, or rigidity. No masses appreciated. EXTREMITIES: Nontender, good range of motion, no pitting or edema. NEUROLOGICAL: NIH equals 2. Right lower facial droop, right arm paresthesia. Moves all extremities spontaneously Motor grossly intact on exam. PSYCH: Normal mood, normal affect. SKIN: Warm, Dry, normal turgor, no rashes or lesions noted on exposed skin - Related Data Allergies/Adverse Reactions: erythromycin base [Erythromycin Base] Allergy (Verified 01/04/14 01:11) infliximab [From Remicade] Allergy (Verified 01/04/14 01:11) CHF latex [Latex] Allergy (Verified 01/04/14 01:11) Fusgmoe-Lmy-Toi Reductase Inhibitor Allergy (Verified 01/04/14 01:11) IVP DYE Allergy (Uncoded 01/04/14 01:11) ITCHING/HIVES SHELL FISH Allergy (Uncoded 01/04/14 01:11) ITCHING/HIVES Past Medical History - Social History Smoking Status: Unknown if Ever Smoked Family History: Arthritis, CAD, CVA, DM, Hyperlipidemia, Hypertension Patient has suicidal ideation: No Patient has homicidal ideation: No - Past Medical History Cardiac Medical History: Reports: Hx Atrial Fibrillation, Hx Congestive Heart Failure, Hx Coronary Artery Disease, Hx Heart Attack - CHF D/T REMICADE, Hx Hypercholesterolemia, Hx Hypertension Pulmonary Medical History: Neurological Medical History: Endocrine Medical History: Reports: Hx Diabetes Mellitus Type 2 Renal/ Medical History: Denies: Hx Peritoneal Dialysis GI Medical History: Reports: Hx Ulcer - COLON, Hx Ulcerative Colitis Musculoskeletal Medical History: Reports Hx Arthritis, Reports Hx Musculoskeletal Deformity - scoliosis, kyphosis Psychiatric Medical History: Denies: Hx Depression Infectious Medical History: Past Surgical History: Reports: Hx Appendectomy, Hx Cardiac Catheterization, Hx Coronary Stent, Hx Hysterectomy, Hx Oral Surgery. Denies: Hx Mastectomy, Hx Open Heart Surgery, Hx Pacemaker - Immunizations Immunizations up to date: Yes Hx Diphtheria, Pertussis, Tetanus Vaccination: Yes Hx Pneumococcal Vaccination: 03/31/07 Physical Exam - Vital signs Vitals: Pulse Resp BP Pulse Ox 81 24 H 128/47 H 98 09/30/18 10:02 09/30/18 10:02 09/30/18 10:02 09/30/18 10:02 Course - Re-evaluation Re-evalutation: 09/30/18 10:11 Vitals reviewed. Nursing notes reviewed. Patient symptoms were present when she woke up around 6 AM this morning and she is outside the window for TPA. She is also not a candidate for TPA because her NIH is only 2 and her symptoms are minor. 09/30/18 11:26 patient re-evaluated and is unchanged. NIH=2. she has passed her swallow study and was given aspirin for suspected stroke. CT brain shows no acute int racranial abnormality. The remainder of her work-up is unremarkable. Patient will be admitted to the hospital for further stroke assessment. Her care was discussed with Dr. Bonds who accepts admission. Patient in agreement with plan of care. Laboratory 09/30/18 09/30/18 09/30/18 09:31 09:31 09:31 WBC 5.5 RBC 3.53 L Hgb 11.5 L Hct 34.7 L MCV 98 H MCH 32.6 MCHC 33.2 RDW 16.4 H Plt Count 204 Seg Neutrophils % 71.6 Lymphocytes % 17.0 Monocytes % 9.9 Eosinophils % 0.0 Basophils % 1.5 Absolute Neutrophils 3.9 Absolute Lymphocytes 0.9 Absolute Monocytes 0.5 Absolute Eosinophils 0.0 Absolute Basophils 0.1 PT 15.1 INR 1.18 APTT 39.1 H Sodium 130.7 L Potassium 3.8 Chloride 83 L Carbon Dioxide 34 H Anion Gap 14 BUN 14 Creatinine 0.89 Est GFR ( Amer) > 60 Est GFR (Non-Af Amer) > 60 Glucose 180 H Calcium 8.8 Total Bilirubin 0.7 Direct Bilirubin 0.7 H Neonat Total Bilirubin Not Reportable Neonat Direct Bilirubin Not Reportable Neonat Indirect Bili Not Reportable AST 52 H ALT 33 Alkaline Phosphatase 65 Creatine Kinase < 20 L CK-MB (CK-2) Troponin I Total Protein 7.5 Albumin 3.4 L 09/30/18 09:31 WBC RBC Hgb Hct MCV MCH MCHC RDW Plt Count Seg Neutrophils % Lymphocytes % Monocytes % Eosinophils % Basophils % Absolute Neutrophils Absolute Lymphocytes Absolute Monocytes Absolute Eosinophils Absolute Basophils PT INR APTT Sodium Potassium Chloride Carbon Dioxide Anion Gap BUN Creatinine Est GFR ( Amer) Est GFR (Non-Af Amer) Glucose Calcium Total Bilirubin Direct Bilirubin Neonat Total Bilirubin Neonat Direct Bilirubin Neonat Indirect Bili AST ALT Alkaline Phosphatase Creatine Kinase CK-MB (CK-2) 0.36 Troponin I < 0.012 Total Protein Albumin Head CT 09/30/18 00:00 IMPRESSION: MILD CHRONIC MICROVASCULAR ISCHEMIA. NO ACUTE IMAGING FINDINGS IN THE BRAIN. EVIDENCE OF ACUTE STROKE: NO. Chest X-Ray 09/30/18 10:05 IMPRESSION: NO ACUTE RADIOGRAPHIC FINDING IN THE CHEST. - Vital Signs Vital signs: Temp Pulse Resp BP Pulse Ox 81 24 H 128/47 H 98 09/30/18 10:02 09/30/18 10:02 09/30/18 10:02 09/30/18 10:02 - Laboratory Result Diagrams: 09/30/18 09:31 09/30/18 09:31 ED NIH Stroke Scale - NIH Stroke Scale *: 1. NIH scale should be completed with appropriate accompanying assessment tools. *: 2. The NIH should reflect what the patient is capable of doing and should not be coached by the clinician. 1a. Level of Consciousness: 0=Alert;keenly responsive -: 1=Drowsy -: 2=Obtunded -: 3=Coma/unresponsive or reflex to noxious stimuli. 1a. Responses: 0 1b. Orientation Questions: a. What month is it? -: b. How old are you? -: 0=Answers both questions correctly. -: 1=Answers one question correctly or patient is intubated or has orotracheal trauma. -: 2=Answers neither question correctly. 1b. Responses: 0 1c. Response to commands: a. Open and close eyes? -: b. Produce Runner and release hand? -: Credit is given despite weakness. Demonstration of task is permitted. Substitute command if hands cannot be used. -: 0=Performs both tasks correctly -: 1=Performs one task correctly -: 2=Performs neither task correctly 1c. Responses: 0 2. Gaze: Establish eye contact and instruct patient to "Follow my finger" -: 0=Normal -: 1=Partial gaze palsy. Gaze is abnormal in one or both eyes, but where forced deviation or total gaze paresis is not present. -: 2=Forced deviation or total gaze paresis. 2. Responses: 0 3. Visual Le: Sees fingers in all four quadrants. -: 0=No visual loss. -: 1=Partial hemianopsia. -: 2=Complete hemianopsia. -: 3=Bilateral hemianopsia (including Cortical blindness) 3. Responses: 0 4. Facial Movement: Instruct patient to: -: a. Show me your teeth -: b. Raise your eyebrows -: c. Close your eyes -: d. Smile -: 0=Normal symmetrical movement -: 1=Minor paralysis (flattened nasolabial fold, asymmetry on smiling). -: 2=Partial paralysis (total or near total paralysis of lower face). -: 3=Complete paralysis of upper and lower face 4. Responses: 1 5. Motor functions (left arm): Alternate sides and extend each arm with palms down (90 degrees if sitting or 45 degrees for supine). -: 0=No drift;limb holds for full 10 seconds. -: 1=Drift; limb holds but drifts down before full 10 seconds, but does not hit bed. -: 2=Some effort against gravity; limb cannot get to or maintain position. -: 3=No effort against gravity; limb falls. -: 4=No movement. -: UN=Amputation, joint fusion, explain in comments. 5. Responses (left arm): 0 5. Motor Functions (right arm): Alternate sides and extend each arm with palms down (90 degrees if sitting or 45 degrees for supine). -: 0=No drift;limb holds for full 10 seconds. -: 1=Drift; limb holds but drifts down before full 10 seconds, but does not hit bed. -: 2=Some effort against gravity; limb cannot get to or maintain position. -: 3=No effort against gravity; limb falls. -: 4=No movement. -: UN=Amputation, joint fusion, explain in comments. 5. Responses (right arm): 0 6. Motor Functions (left leg): With patient lying supine, alternate sides and extend each leg (30 degrees always while supine). -: 0=No drift, leg holds position for full 5 seconds -: 1=Drift; leg falls before full 5 seconds but does not hit bed. -: 2=Some effort against gravity, leg falls to bed but some effort against gravity. -: 3=No effort against gravity, leg falls to bed immediately. -: 4=No movement. -: UN=Amputation, joint fusion; explain in comments. 6. Responses (left leg): 0 6. Motor Functions (right leg): With patient lying supine, alternate sides and e xtend each leg (30 degrees always while supine). -: 0=No drift, leg holds position for full 5 seconds -: 1=Drift; leg falls before full 5 seconds but does not hit bed. -: 2=Some effort against gravity, leg falls to bed but some effort against gravity. -: 3=No effort against gravity, leg falls to bed immediately. -: 4=No movement. -: UN=Amputation, joint fusion; explain in comments. 6. Responses (right leg): 0 7. Limb Ataxia: With eyes open instruct patient to: -: a. "Touch your finger to your nose". -: b. "Touch your heel to your tellez" -: 0=Absent -: 1=Present in one limb. -: 2=Present in two limbs. -: UN=Amputation or joint fusion; explain in comments. 7. Responses: 0 8. Sensory: Test sensation using pinprick or noxious stimuli. Test as many body parts as possible. -: 0=Normal;no sensory loss -: 1=Mile to moderate sensory loss (patient feels pin prick but is less sharp on affected side). -: 2=Severe or total sensory loss. 8. Responses: 1 9. Best Language: Instruct patient to: -: a. "Describe what you see in this picture." -: b. "Name the items in this picture." -: c. "Read these sentences." -: 0=No aphasia, normal -: 1=Mild to moderate aphasia. -: 2=Severe aphasia -: 3=Mute, global aphasia, no usable speech or auditory comprehension. 9. Responses: 0 10. Articulation, Dysarthia: Instruct patient to: -: "Read these words" or "Repeat these words" -: 0=Normal -: 1=Mild to moderate; patient may slur some words but can be understood without difficulty. -: 2=Severe; patients speech so slurred as to be unintelligible in the absence of dysphasia. -: UN=Intubated or other physical barrier, explain in comments. 10. Responses: 0 11. Extinction or inattention: 0=No abnormality -: 1= Visual, tactile, auditory, spatial, or personal inattention or extinction to bilateral simulation in one or the sensory modalities. -: 2=Profound autumn-inattention or autumn-inattention to more than one modality; does not recognize own hand. 11. Responses: 0 Total Score: 2 Discharge - Discharge Clinical Impression: Weakness on right side of face, Arm paresthesia, right Condition: Stable Disposition: ADMITTED INPATIENT Admitting Provider: Cammie (Hospitalist) Unit Admitted: TAL
[2018-09-30 10:30] LABS: INTERNATIONAL RATION (INR) 1.18; PARTIAL THROMBOPLASTIN TIME 39.1 SEC (23.5-35.8)
[2018-09-30 10:35] LABS: PROTHROMBIN TIME 15.1 SEC (11.4-15.4)
[2018-09-30 10:38] LABS: ALANINE AMINOTRANSFERASE 33 U/L (9-52); ALBUMIN 3.4 g/dL (3.5-5.0); ALKALINE PHOSPHATASE 65 U/L (38-126); ANION GAP 14 (5-19); ASPARTATE AMINO TRANSFERASE 52 U/L (14-36); BILIRUBIN,DIRECT 0.7 mg/dL (0.0-0.4); BILIRUBIN,TOTAL 0.7 mg/dL (0.2-1.3); BLOOD UREA NITROGEN 14 mg/dL (7-20); CALCIUM 8.8 mg/dL (8.4-10.2); CARBON DIOXIDE 34 mmol/L (22-30); CHLORIDE 83 mmol/L (98-107); GLUCOSE 180 mg/dL (75-110); POTASSIUM 3.8 mmol/L (3.6-5.0); SODIUM 130.7 mmol/L (137-145); TOTAL PROTEIN 7.5 g/dL (6.3-8.2)
[2018-09-30 10:39] LABS: ABSOLUTE BASOPHILS # (AUTO) 0.1 10^3/uL (0.0-0.2); ABSOLUTE LYMPHOCYTES (AUTO) 0.9 10^3/uL (0.5-4.7); ABSOLUTE MONOCYTES (AUTO) 0.5 10^3/uL (0.1-1.4); ABSOLUTE NEUT (AUTO) 3.9 10^3/uL (1.7-8.2); BASOPHILS % (AUTO) 1.5 % (0-2); HEMATOCRIT 34.7 % (36.0-47.0); HEMOGLOBIN 11.5 g/dL (12.0-15.5); MEAN CORPUSCULAR HEMOGLOBIN 32.6 pg (27.0-33.4); MEAN CORPUSCULAR HGB CONC 33.2 g/dL (32.0-36.0); MEAN CORPUSCULAR VOLUME 98 fl (80-97); MONOCYTES % (AUTO) 9.9 % (3-13); PLATELET COUNT 204 10^3/uL (150-450); RED BLOOD COUNT 3.53 10^6/uL (3.72-5.28); RED CELL DISTRIBUTION WIDTH 16.4 % (11.5-14.0); SEGMENTED NEUTROPHILS % (AUTO) 71.6 % (42-78); TOTAL CELLS COUNTED % (AUTO) 100 %; WHITE BLOOD COUNT 5.5 10^3/uL (4.0-10.5)
[2018-09-30 10:40] LABS: CREATINE KINASE < 20 U/L (30-135)
[2018-09-30 10:50] LABS: CREATINE KINASE MB 0.36 ng/mL (<4.55)
[2018-09-30 10:51] LABS: TROPONIN I < 0.012 ng/mL
--- NOTE | 2018-09-30 11:08 | RADIOLOGY REPORT (SQ) ---
EXAM DESCRIPTION: CT HEAD WITHOUT COMPLETED DATE/TIME: 09/30/2018 10:51 am REASON FOR STUDY: numbness/hx of stroke COMPARISON: 09/20/2018 TECHNIQUE: Axial images acquired through the brain without intravenous contrast. Images reviewed wi th bone, brain and subdural windows. Additional sagittal and coronal reconstructions were generated. Images stored on PACS. All CT scanners at this facility use dose modulation, iterative reconstruction, and/or weight based d osing when appropriate to reduce radiation dose to as low as reasonably achievable (ALARA). [facility]: Dose Right [facility]: CareDose [facility]: Dose Right [facility]: Teradose 4D [facility]: Smart ScaleIO RADIATION DOSE: CT Rad equipment meets quality standard of care and radiation dose reduction techniq ues were employed. CTDIvol: 53.2 mGy. DLP: 991 mGy-cm. mGy. LIMITATIONS: None. FINDINGS: VENTRICLES: Normal size and contour. CEREBRUM: No masses. No hemorrhage. No midline shift. No evidence for acute infarction. Few scatte red areas of low density in the white matter most likely chronic small vessel ischemic changes. CEREBELLUM: No masses. No hemorrhage. No alteration of density. No evidence for acute infarction. EXTRAAXIAL SPACES: No fluid collections. No masses. ORBITS AND GLOBE: No intra- or extraconal masses. Normal contour of globe without masses. CALVARIUM: No fracture. PARANASAL SINUSES: No fluid or mucosal thickening. SOFT TISSUES: No mass or hematoma. OTHER: No other significant finding. IMPRESSION: MILD CHRONIC MICROVASCULAR ISCHEMIA. NO ACUTE IMAGING FINDINGS IN THE BRAIN. EVIDENCE OF ACUTE STROKE: NO. COMMENT: Quality ID # [id number]: Final reports with documentation of one or more dose reduction techniques (e.g., Automated exposure control, adjustment of the mA and/or kV according to patient size, use of iterative reconstruction technique) TECHNICAL DOCUMENTATION: JOB ID: [id number] [employer]- All Rights Reserved Reading location - IP/workstation name: [email or web address]
--- NOTE | 2018-09-30 11:08 | RADIOLOGY REPORT (SQ) ---
EXAM DESCRIPTION: CHEST SINGLE VIEW COMPLETED DATE/TIME: 09/30/2018 10:58 am REASON FOR STUDY: weakness COMPARISON: None. EXAM PARAMETERS: NUMBER OF VIEWS: One view. TECHNIQUE: Single frontal radiographic view of the chest acquired. RADIATION DOSE: NA LIMITATIONS: None. FINDINGS: LUNGS AND PLEURA: No opacities, masses or pneumothorax. No pleural effusion. MEDIASTINUM AND HILAR STRUCTURES: No masses. Contour normal. HEART AND VASCULAR STRUCTURES: Heart normal in size. Normal vasculature. BONES: No acute findings. HARDWARE: None in the chest. OTHER: No other significant finding. IMPRESSION: NO ACUTE RADIOGRAPHIC FINDING IN THE CHEST. TECHNICAL DOCUMENTATION: JOB ID: [id number] [employer]- All Rights Reserved Reading location - IP/workstation name: [email or web address]
[2018-09-30] MEDS ORDERED: ASPIRIN 325 MG TABLET PO ONE (11:17)
--- NOTE | 2018-09-30 13:56 | PDOC H&P ---
History of Present Illness Admission Date/PCP: 09/30/18 11:37 KAYLEEN REHMAN MD History of Present Illness: VAN DARLING is a 78 year old female past medical history of diabetes, ulcerative colitis, A. fib, CHF, CAD status post 2 stent placement, hypertension, dyslipidemia, was discharged on 09/17/2018 from all meds, was hospitalized for UTI, acute encephalopathy, A. fib RVR, hyponatremia. Presenting to ED complaining of numbness to the right upper and lower extremity. States that she noticed the symptoms sometimes last night but at 6 AM when she woke up to have her breakfast she noticed that her right upper and lower extremity numbness and weakness on the right upper extremity, had to have her breakfast with her left hand. Right upper extremity weakness has resolved however patient still has numbness on right upper and lower extremity. In ED NIH was 2, not a TPA candidate, CT head negative for any acute stroke. Hospitalist consulted for admission. On my encounter patient is comfortably sitting in her bed, alert oriented x3, complaining of persistent right upper extremity numbness, negative for any focal neurological symptoms. Complaining of chronic vertigo, denies any nausea, vomiting, diarrhea, constipation, chest pain, shortness of breath, urinary symptoms, weight gain, weight loss, vision changes. Past Medical History Cardiac Medical History: Reports: Atrial Fibrillation, Congestive Heart Failure, Coronary Artery Disease, Myocardial Infarction - CHF D/T REMICADE, Hyperlipidema, Hypertension Pulmonary Medical History: Neurological Medical History: Endocrine Medical History: Reports: Diabetes Mellitus Type 2 GI Medical History: Reports: Ulcerative Colitis Musculoskeltal Medical History: Reports: Arthritis Psychiatric Medical History: Denies: Depression Hematology: Reports: Anemia - D/T ULCERATIVE COLITIS Denies: Sickle Cell Disease Past Surgical History Past Surgical History: Reports: Appendectomy, Cardiac Catheterization, Coronary Stent, Hysterectomy Denies: Amputation, Mastectomy, Pacemaker Social History Smoking Status: Unknown if Ever Smoked Frequency of Alcohol Use: None Hx Recreational Drug Use: No Drugs: None Hx Prescription Drug Abuse: No Family History Family History: Arthritis, CAD, CVA, DM, Hyperlipidemia, Hypertension Parental Family History Reviewed: Yes Children Family History Reviewed: Yes Sibling(s) Family History Reviewed.: Yes Medication/Allergy Home Medications: Atenolol [Tenormin] 25 mg PO DAILY 09/17/18 Ezetimibe [Zetia 10 mg Tablet] 10 mg PO DAILY 09/17/18 Furosemide [Lasix 20 mg Tablet] 20 mg PO DAILY 09/17/18 Gabapentin [Neurontin 300 mg Capsule] 300 mg PO Q12 09/17/18 Lisinopril [Zestril] 10 mg PO DAILY 09/17/18 Mercaptopurine [Purinethol 50 mg Tablet] 50 mg PO DAILY 09/17/18 Sulfasalazine [Azulfidine 500 mg Tablet.dr] 500 mg PO QID 09/17/18 Ciprofloxacin HCl [Cipro 500 mg Tablet] 500 mg PO BID #8 tablet 09/25/18 Diltiazem HCl [Cardizem 60 mg Tablet] 60 mg PO Q6 #0 tablet 09/25/18 Allergies/Adverse Reactions: erythromycin base [Erythromycin Base] Allergy (Verified 01/04/14 01:11) infliximab [From Remicade] Allergy (Verified 01/04/14 01:11) CHF latex [Latex] Allergy (Verified 01/04/14 01:11) Mgsbrcz-Bnp-Lgx Reductase Inhibitor Allergy (Verified 01/04/14 01:11) IVP DYE Allergy (Uncoded 01/04/14 01:11) ITCHING/HIVES SHELL FISH Allergy (Uncoded 01/04/14 01:11) ITCHING/HIVES Review of Systems Review of Systems: as per hpi Physical Exam Vital Signs: Temp Pulse Resp BP Pulse Ox 81 24 H 128/47 H 98 09/30/18 10:02 09/30/18 10:02 09/30/18 10:02 09/30/18 10:02 Intake & Output 09/29/18 09/30/18 10/01/18 06:59 06:59 06:59 Weight 68.8 kg General appearance: PRESENT: no acute distress, obese, well-developed, well- nourished Head exam: PRESENT: atraumatic, normocephalic Respiratory exam: PRESENT: clear to auscultation tanvi. ABSENT: rales, rhonchi, wheezes Cardiovascular exam: PRESENT: RRR. ABSENT: diastolic murmur, rubs, systolic murmur GI/Abdominal exam: PRESENT: normal bowel sounds, soft. ABSENT: distended, guarding, mass, organolmegaly, rebound, tenderness Extremities exam: PRESENT: full ROM. ABSENT: calf tenderness, clubbing, pedal edema Neurological exam: PRESENT: alert, awake, oriented to person, oriented to place, oriented to time, oriented to situation, CN II-XII grossly intact. ABSENT: motor sensory deficit Results Laboratory Results: 09/30/18 09:31 09/30/18 09:31 09/30/18 09/30/18 09:31 09:31 WBC 5.5 RBC 3.53 L Hgb 11.5 L Hct 34.7 L MCV 98 H MCH 32.6 MCHC 33.2 RDW 16.4 H Plt Count 204 Seg Neutrophils % 71.6 Lymphocytes % 17.0 Monocytes % 9.9 Eosinophils % 0.0 Basophils % 1.5 Absolute Neutrophils 3.9 Absolute Lymphocytes 0.9 Absolute Monocytes 0.5 Absolute Eosinophils 0.0 Absolute Basophils 0.1 Sodium 130.7 L Potassium 3.8 Chloride 83 L Carbon Dioxide 34 H Anion Gap 14 BUN 14 Creatinine 0.89 Est GFR ( Amer) > 60 Est GFR (Non-Af Amer) > 60 Glucose 180 H Calcium 8.8 Total Bilirubin 0.7 AST 52 H ALT 33 Alkaline Phosphatase 65 Total Protein 7.5 Albumin 3.4 L 09/30/18 09/30/18 09:31 09:31 Creatine Kinase < 20 L CK-MB (CK-2) 0.36 Troponin I < 0.012 Impressions: Head CT 09/30/18 00:00 IMPRESSION: MILD CHRONIC MICROVASCULAR ISCHEMIA. NO ACUTE IMAGING FINDINGS IN THE BRAIN. EVIDENCE OF ACUTE STROKE: NO. Chest X-Ray 09/30/18 10:05 IMPRESSION: NO ACUTE RADIOGRAPHIC FINDING IN THE CHEST. Assessment and Plan - Diagnosis (1) TIA (transient ischemic attack) Is this a current diagnosis for this admission?: Yes Plan: CT head negative. Complaining of subjective right-sided numbness. Negative for any focal neurological symptoms. Admit to ICU for observation, antiplatelets, statins, optimize BP, neurochecks, ST/PT/OT. MRI brain, 2D carotids. (2) Atrial fibrillation with RVR Is this a current diagnosis for this admission?: Yes Plan: Rate controlled. Not anticoagulated. Restart diltiazem. (3) CAD (coronary artery disease) Is this a current diagnosis for this admission?: Yes Plan: Status post PCI, 2 stents. Restart antiplatelets, MARYLIN, beta-blockers Patient allergic to HMG coag reductase inhibitors. Continue ezetimibe. (4) Chronic systolic CHF (congestive heart failure) Is this a current diagnosis for this admission?: Yes Plan: Compensated. History of systolic heart failure. 01/10/2018. 2D echo. LVEF 55%. Mild diastolic dysfunction. Cardiac diet, atenolol, Lasix. Monitor vitals, adjust meds as needed. Outpatient PCP follow-up. (5) HTN (hypertension) Is this a current diagnosis for this admission?: Yes Plan: Normotensive, euvolemic. Continue lisinopril, atenolol, Lasix, Cardizem. Monitor vitals, adjust meds as needed. Outpatient PCP follow-up.
[2018-09-30] MEDS ORDERED: ACETAMINOPHEN 325 MG TABLET PO PRN (14:06)
[2018-09-30] MEDS ORDERED: OXYCODONE-ACETAMINOPHEN 5-325 MG TABLET PO PRN (14:06)
[2018-09-30] MEDS ORDERED: ONDANSETRON HCL INJ/PF 4 MG/2 ML SDV IV PRN (14:06)
[2018-09-30] MEDS ORDERED: IPRATROPIUM/ALBUTEROL 0.5-2.5 MG/3 ML AMPUL NEB PRN (14:06)
[2018-09-30] MEDS ORDERED: TEMAZEPAM 15 MG CAPSULE PO PRN (14:06)
[2018-09-30] MEDS ORDERED: PROMETHAZINE HCL INJ 25 MG/1 ML VIAL IV PRN (14:06)
[2018-09-30] MEDS ORDERED: NORMAL SALINE 1000 ML 1,000 ML IV PRN (14:06)
[2018-09-30] MEDS ORDERED: MECLIZINE HCL 12.5 MG TABLET PO PRN (14:19)
[2018-09-30] MEDS: DILTIAZEM HCL 60 MG TABLET PO SCH ×2 (17:42→23:28)
[2018-09-30] MEDS: SULFASALAZINE 500 MG TABLET.DR PO SCH ×2 (17:50→21:23)
--- NOTE | 2018-09-30 18:00 | EKG REPORT ---
SEVERITY:- NORMAL ECG - SINUS RHYTHM : Confirmed by: Aliza Multani 30-Sep-2018 17:59:35
[2018-09-30] MEDS: GABAPENTIN 300 MG CAPSULE PO SCH (21:22)
[2018-09-30] MEDS: FAMOTIDINE 20 MG TABLET PO SCH (21:22)
[2018-09-30] MEDS: HEPARIN SOD (PORCINE) 5,000 UNIT/ML 1 ML SYRINGE SUBCUT SCH (21:23)
[2018-10-01] MEDS: DILTIAZEM HCL 60 MG TABLET PO SCH ×3 (05:36→17:40)
[2018-10-01] MEDS: HEPARIN SOD (PORCINE) 5,000 UNIT/ML 1 ML SYRINGE SUBCUT SCH ×2 (05:36→15:09)
[2018-10-01 06:10] LABS: HEMATOCRIT 31.2 % (36.0-47.0); HEMOGLOBIN 10.3 g/dL (12.0-15.5); MEAN CORPUSCULAR HEMOGLOBIN 31.7 pg (27.0-33.4); MEAN CORPUSCULAR HGB CONC 33.1 g/dL (32.0-36.0); MEAN CORPUSCULAR VOLUME 96 fl (80-97); PLATELET COUNT 175 10^3/uL (150-450); RED BLOOD COUNT 3.25 10^6/uL (3.72-5.28); WHITE BLOOD COUNT 3.9 10^3/uL (4.0-10.5)
[2018-10-01 06:30] LABS: ANION GAP 7 (5-19); BLOOD UREA NITROGEN 10 mg/dL (7-20); CALCIUM 8.1 mg/dL (8.4-10.2); CARBON DIOXIDE 35 mmol/L (22-30); CHLORIDE 89 mmol/L (98-107); GLUCOSE 114 mg/dL (75-110); POTASSIUM 3.3 mmol/L (3.6-5.0); SODIUM 131.3 mmol/L (137-145)
[2018-10-01 07:49] LABS: ABSOLUTE LYMPHOCYTES# (MANUAL) 0.4 10^3/uL (0.5-4.7); ABSOLUTE MONOCYTES # (MANUAL) 0.5 10^3/uL (0.1-1.4); ANISOCYTOSIS SLIGHT; BAND NEUTROPHILS % (MANUAL) 2 % (3-5); BASOPHILS % (MANUAL) 0 % (0-2); EOSINOPHILS % (MANUAL) 0 % (0-6); LYMPHOCYTES % (MANUAL) 11 % (13-45); MONOCYTES % (MANUAL) 12 % (3-13); OVALOCYTES SLIGHT; POLYCHROMASIA SLIGHT; SEGMENTED NEUTROPHILS % (MAN) 75 % (42-78); TOTAL CELLS COUNTED 100; TOXIC GRANULATION SLIGHT; TOXIC VACUOLATION PRESENT
[2018-10-01 07:50] LABS: PLATELET CLUMPS PRESENT; PLATELET COMMENT ADEQUATE; PLATELET LARGE PRESENT; TEAR DROP CELLS SLIGHT
[2018-10-01] MEDS ORDERED: POTASSIUM CHLORIDE 10 MEQ CAPSULE.ER PO ONE ×2 (09:03→09:30)
[2018-10-01] MEDS: SULFASALAZINE 500 MG TABLET.DR PO SCH ×3 (09:04→17:40)
[2018-10-01] MEDS: FAMOTIDINE 20 MG TABLET PO SCH (09:04)
[2018-10-01] MEDS: GABAPENTIN 300 MG CAPSULE PO SCH (09:05)
[2018-10-01] MEDS ORDERED: EZETIMIBE 10 MG TABLET PO SCH (10:00)
[2018-10-01] MEDS ORDERED: DOCUSATE SODIUM 100 MG CAPSULE PO SCH (10:00)
[2018-10-01] MEDS ORDERED: ATENOLOL 50 MG TABLET PO SCH (10:00)
[2018-10-01] MEDS ORDERED: LIDOCAINE 5% (700 MG) TRANSDERMAL ADH..PATCH TP SCH (10:00)
[2018-10-01] MEDS ORDERED: MERCAPTOPURINE 50 MG TABLET PO SCH (10:00)
[2018-10-01] MEDS ORDERED: (PENDING PHARMACY ID) (Atenolol [Tenormin] 25 MG) PO SCH (10:00)
[2018-10-01] MEDS ORDERED: LISINOPRIL 10 MG TABLET PO SCH (10:00)
[2018-10-01] MEDS ORDERED: FUROSEMIDE 20 MG TABLET PO SCH (10:00)
[2018-10-01 13:06] VITALS: BP 136/45
--- NOTE | 2018-10-01 15:42 | PDOC TRANSFER SUMMARY ---
General Admission Date/PCP: 09/30/18 11:37 KAYLEEN REHMAN MD - Transfer Diagnosis (1) TIA (transient ischemic attack) Is this a current diagnosis for this admission?: Yes (2) Atrial fibrillation with RVR Is this a current diagnosis for this admission?: Yes (3) CAD (coronary artery disease) Is this a current diagnosis for this admission?: Yes (4) Chronic systolic CHF (congestive heart failure) Is this a current diagnosis for this admission?: Yes (5) HTN (hypertension) Is this a current diagnosis for this admission?: Yes - Transfer Medications Home Medications: Atenolol [Tenormin] 25 mg PO DAILY 09/17/18 Ezetimibe [Zetia 10 mg Tablet] 10 mg PO DAILY 09/17/18 Furosemide [Lasix 20 mg Tablet] 20 mg PO DAILY 09/17/18 Gabapentin [Neurontin 300 mg Capsule] 300 mg PO Q12 09/17/18 Lisinopril [Zestril] 10 mg PO DAILY 09/17/18 Mercaptopurine [Purinethol 50 mg Tablet] 50 mg PO DAILY 09/17/18 Sulfasalazine [Azulfidine 500 mg Tablet.dr] 500 mg PO QID 09/17/18 Transfer Medications: Current Medications Acetaminophen (Tylenol 325 Mg Tablet) 325 mg PO Q4HP PRN PRN Reason: FEVER >101 Stop: 10/30/18 14:05 Albuterol/Ipratropium (Duoneb 3 Ml Ampul) 3 ml NEB RTQ8HP PRN PRN Reason: SHORTNESS OF BREATH Stop: 10/30/18 14:05 Atenolol (Tenormin 50 Mg Tablet) 25 mg PO DAILY [facility] Stop: 10/31/18 09:59 Last Admin: 10/01/18 09:05 Dose: 25 mg Documented by: Diltiazem HCl (Cardizem 60 Mg Tablet) 60 mg PO Q6 [facility] Stop: 10/30/18 17:59 Last Admin: 10/01/18 12:08 Dose: 60 mg Documented by: Docusate Sodium (Colace 100 Mg Capsule) 100 mg PO DAILY [facility] Stop: 10/31/18 09:59 Last Admin: 10/01/18 09:04 Dose: 100 mg Documented by: Ezetimibe (Zetia 10 Mg Tablet) 10 mg PO DAILY [facility] Stop: 10/31/18 09:59 Last Admin: 10/01/18 09:05 Dose: 10 mg Documented by: Famotidine (Pepcid 20 Mg Tablet) 20 mg PO Q12 [facility] Stop: 10/30/18 21:59 Last Admin: 10/01/18 09:04 Dose: 20 mg Documented by: Furosemide (Lasix 20 Mg Tablet) 20 mg PO DAILY MARIEL Stop: 10/31/18 09:59 Last Admin: 10/01/18 09:04 Dose: 20 mg Documented by: Gabapentin (Neurontin 300 Mg Capsule) 300 mg PO Q12 MARIEL Stop: 10/30/18 21:59 Last Admin: 10/01/18 09:05 Dose: 300 mg Documented by: Heparin Sodium (Porcine) (Heparin Inj 5,000 Units/Ml 1 Ml Syringe) 5,000 unit SUBCUT Q8 MARIEL Stop: 10/30/18 21:59 Last Admin: 10/01/18 15:09 Dose: 5,000 unit Documented by: Lidocaine (Lidoderm 5% (700 Mg) Transdermal Patch) 1 patch TP DAILY [facility] Stop: 10/31/18 09:59 Last Admin: 10/01/18 12:08 Dose: 1 patch Documented by: Lisinopril (Prinivil 10 Mg Tablet) 10 mg PO DAILY [facility] Stop: 10/31/18 09:59 Last Admin: 10/01/18 09:05 Dose: 10 mg Documented by: Meclizine HCl (Antivert 12.5 Mg Tablet) 12.5 mg PO Q8HP PRN PRN Reason: DIZZINESS Stop: 10/30/18 14:18 Mercaptopurine (Purinethol 50 Mg Tablet) 50 mg PO DAILY [facility] Stop: 10/31/18 09:59 Last Admin: 10/01/18 09:06 Dose: 50 mg Documented by: Ondansetron HCl (Zofran Inj/Pf 4 Mg/2 Ml Sdv) 4 mg IV Q4HP PRN PRN Reason: FOR NAUSEA/VOMITING Stop: 10/30/18 14:05 Oxycodone/Acetaminophen (Percocet 5-325 Mg Tablet) 1 tab PO Q4HP PRN PRN Reason: FOR PAIN SCALE 2-3 Stop: 10/07/18 14:05 Last Admin: 10/01/18 09:05 Dose: 1 tab Documented by: Promethazine HCl (Phenergan Inj 25 Mg/1 Ml Vial) 6.25 mg IV Q4HP PRN PRN Reason: FOR NAUSEA/VOMITING Stop: 10/30/18 14:05 Sulfasalazine (Azulfidine 500 Mg Tablet.) 500 mg PO QID MARIEL Stop: 10/07/18 17:59 Last Admin: 10/01/18 15:10 Dose: 500 mg Documented by: Temazepam (Restoril 15 Mg Capsule) 15 mg PO HSP PRN PRN Reason: SLEEP OR INSOMNIA Stop: 10/07/18 14:05 - Allergies Allergies/Adverse Reactions: erythromycin base [Erythromycin Base] Allergy (Verified 01/04/14 01:11) infliximab [From Remicade] Allergy (Verified 01/04/14 01:11) CHF latex [Latex] Allergy (Verified 01/04/14 01:11) Yqkppjg-Qgy-Tga Reductase Inhibitor Allergy (Verified 01/04/14 01:11) IVP DYE Allergy (Uncoded 01/04/14 01:11) ITCHING/HIVES SHELL FISH Allergy (Uncoded 01/04/14 01:11) ITCHING/HIVES Hospital Course Hospital Course: VAN DARLING is a 78 year old female past medical history of diabetes, ulcerative colitis, A. fib, CHF, CAD status post 2 stent placement, hypertension, dyslipidemia, was discharged on 09/17/2018 from all meds, was hos pitalized for UTI, acute encephalopathy, A. fib RVR, hyponatremia. Presenting to ED complaining of numbness to the right upper and lower extremity. States that she noticed the symptoms sometimes last night but at 6 AM when she woke up to have her breakfast she noticed that her right upper and lower extremity numbness and weakness on the right upper extremity, had to have her breakfast with her left hand. Right upper extremity weakness has resolved however patient still has numbness on right upper and lower extremity. In ED NIH was 2, not a TPA candidate, CT head negative for any acute stroke. Hospitalist consulted for admission. On my encounter patient is comfortably sitting in her bed, alert oriented x3, complaining of persistent right upper extremity numbness, negative for any focal neurological symptoms. Complaining of chronic vertigo, denies any nausea, vomiting, diarrhea, c onstipation, chest pain, shortness of breath, urinary symptoms, weight gain, weight loss, vision changes. (1) TIA (transient ischemic attack) Was admited to [facility] for observation, antiplatelets, optimize BP, neurochecks, ST/PT/OT. Right sided numbness resolved. Evaluated by PT/OT/ST, recommendation is transfer back to SNF, continue PT/OT CT/MRI Head negative. Carotid doppler negative for any hypodermically significant stenosis (2) Atrial fibrillation with RVR Admitted to tele. Rate controlled. Not anticoagulated. Restarted diltiazem. (3) CAD (coronary artery disease) Status post PCI, 2 stents. Was restart antiplatelets, MARYLIN, beta-blockers Patient allergic to HMG coag reductase inhibitors. Continued on ezetimibe. (4) Chronic systolic CHF (congestive heart failure) Compensated. History of systolic heart failure. 01/10/2018. 2D echo. LVEF 55%. Mild diastolic dysfunction. Cardiac diet, atenolol, Lasix. Monitor vitals, adjust meds as needed. Outpatient PCP follow-up. (5) HTN (hypertension) Normotensive, euvolemic. Continue lisinopril, atenolol, Lasix, Cardizem. Monitor vitals, adjust meds as needed. Outpatient PCP follow-up. Physical Exam Vital Signs: Temp Pulse Resp BP Pulse Ox 98.2 F 71 15 136/45 H 95 10/01/18 11:33 10/01/18 12:00 10/01/18 12:00 10/01/18 12:00 10/01/18 12:00 Intake & Output 09/30/18 10/01/18 10/02/18 06:59 06:59 06:59 Intake Total 1058 Output Total 1450 Balance -392 Weight 69.8 kg General appearance: PRESENT: no acute distress, well-developed, well-nourished Head exam: PRESENT: atraumatic, normocephalic Respiratory exam: PRESENT: clear to auscultation tanvi. ABSENT: rales, rhonchi, wheezes Cardiovascular exam: PRESENT: RRR. ABSENT: diastolic murmur, rubs, systolic murmur GI/Abdominal exam: PRESENT: normal bowel sounds, soft. ABSENT: distended, guarding, mass, organolmegaly, rebound, tenderness Extremities exam: PRESENT: full ROM. ABSENT: calf tenderness, clubbing, pedal edema Neurological exam: PRESENT: alert, awake, oriented to person, oriented to place, oriented to time, oriented to situation, CN II-XII grossly intact. ABSENT: motor sensory deficit Results Laboratory Results: 10/01/18 05:59 10/01/18 05:59 10/01/18 10/01/18 05:59 05:59 WBC 3.9 L RBC 3.25 L Hgb 10.3 L Hct 31.2 L MCV 96 MCH 31.7 MCHC 33.1 RDW 16.0 H Plt Count 175 Seg Neutrophils % Not Reportable Lymphocytes % Not Reportable Monocytes % Not Reportable Eosinophils % Not Reportable Basophils % Not Reportable Absolute Neutrophils Not Reportable Absolute Lymphocytes Not Reportable Absolute Monocytes Not Reportable Absolute Eosinophils Not Reportable Absolute Basophils Not Reportable Sodium 131.3 L Potassium 3.3 L Chloride 89 L Carbon Dioxide 35 H Anion Gap 7 BUN 10 Creatinine 0.71 Est GFR ( Amer) > 60 Est GFR (Non-Af Amer) > 60 Glucose 114 H Calcium 8.1 L 09/30/18 09/30/18 09:31 09:31 Creatine Kinase < 20 L CK-MB (CK-2) 0.36 Troponin I < 0.012 Impressions: Head CT 09/30/18 00:00 IMPRESSION: MILD CHRONIC MICROVASCULAR ISCHEMIA. NO ACUTE IMAGING FINDINGS IN THE BRAIN. EVIDENCE OF ACUTE STROKE: NO. Chest X-Ray 09/30/18 10:05 IMPRESSION: NO ACUTE RADIOGRAPHIC FINDING IN THE CHEST.
--- NOTE | 2018-10-01 15:55 | RADIOLOGY REPORT (SQ) ---
EXAM DESCRIPTION: MRI HEAD WITHOUT COMPLETED DATE/TIME: 10/01/2018 2:51 pm REASON FOR STUDY: tia E10.9 TYPE 1 DIABETES MELLITUS WITHOUT COMPLICATIONS COMPARISON: CT brain 09/30/2018, 09/20/2018 MRI brain 09/26/2016 TECHNIQUE: Multiplanar imaging includes non-contrasted T1, T2, FLAIR, and diffusion with ADC map seq uences. Images stored on PACS. LIMITATIONS: None. FINDINGS: ANATOMY: No developmental anomalies. Normal vascular flow voids. Pituitary fossa normal. CSF SPACES: Normal in size and contour. No hemorrhage. CEREBRUM: Sulci and gyri normal in size and contour. Minimal age-appropriate bifrontal and biparieta l white matter signal on FLAIR imaging. No evidence of hemorrhage, mass, or extraaxial fluid collect ion. POSTERIOR FOSSA: No signal alteration. No hemorrhage. No edema, masses or mass effect. Internal bashir tory canals, cerebello-pontine angles, mastoids normal. DIFFUSION IMAGING: Negative for acute or sub-acute infarction. ORBITS: No masses. Globes normal. PARANASAL SINUSES: No fluid levels. Mucosa normal. OTHER: No other significant finding. IMPRESSION: No acute findings. Age-appropriate white matter disease. EVIDENCE OF ACUTE STROKE: NO. TECHNICAL DOCUMENTATION: JOB ID: [id number] [employer]- All Rights Reserved Reading location - IP/workstation name: [email or web address]
--- NOTE | 2018-10-01 18:18 | RADIOLOGY REPORT (SQ) ---
EXAM DESCRIPTION: CAROTID DOPPLER COMPLETED DATE/TIME: 10/01/2018 5:46 pm REASON FOR STUDY: TIA E10.9 TYPE 1 DIABETES MELLITUS WITHOUT COMPLICATIONS COMPARISON: None. TECHNIQUE: Grayscale ultrasound, Doppler velocity and spectra, and color Doppler images acquired of the extra-cranial carotid and vertebral arteries. Images stored on PACS. LIMITATIONS: None. FINDINGS: RIGHT CAROTID CCA Velocities: Within normal limits. ICA Velocities Peak systolic 97 cm/s. End diastolic 25 cm/s. Proximal ICA/CCA peak systolic ratio 1.6. There is small amount of plaque in the carotid bulb and at the origin of the ICA. LEFT CAROTID CCA Velocities: Within normal limits. ICA Velocities Peak systolic 90 cm/s. End diastolic 24 cm/s. Proximal ICA/CCA peak systolic ratio 1.4. There is small amount of plaque in the carotid bulb. VERTEBRAL ARTERIES: Antegrade flow. Normal waveforms. SUBCLAVIAN ARTERIES: No finding. OTHER: No other significant finding. IMPRESSION: NO HEMODYNAMICALLY SIGNIFICANT STENOSIS. COMMENT: Quality ID #[id number]: Velocity criteria are extrapolated from the diameter data as defined by t he Society of Radiologists in Ultrasound Consensus Conference. Radiology 2003: 229; 340-346. TECHNICAL DOCUMENTATION: JOB ID: [id number] [employer]- All Rights Reserved Reading location - IP/workstation name: [email or web address]
== END 2018-10-01 18:47 ==
LOC: ER 09:46 → EH 11:37 → INTOOBSV 11:37 → 3S 15:06
PROVIDERS: ADMIT Internal Medicine; ATTEND Internal Medicine
DX: G45.9 Transient cerebral ischemic attack, unspecified (principal); I48.91 Unspecified atrial fibrillation; I25.10 Atherosclerotic heart disease of native coronary artery without angina pectoris; I11.0 Hypertensive heart disease with heart failure; I50.22 Chronic systolic (congestive) heart failure; E11.9 Type 2 diabetes mellitus without complications; R20.0 Anesthesia of skin; I25.2 Old myocardial infarction; E66.9 Obesity, unspecified; K51.90 Ulcerative colitis, unspecified, without complications; R26.89 Other abnormalities of gait and mobility; M62.81 Muscle weakness (generalized); E78.5 Hyperlipidemia, unspecified; R29.702 NIHSS score 2; R12 Heartburn; Z79.899 Other long term (current) drug therapy; Z95.5 Presence of coronary angioplasty implant and graft; Z88.8 Allergy status to other drugs, medicaments and biological substances; Z90.49 Acquired absence of other specified parts of digestive tract; Z86.73 Personal history of transient ischemic attack (TIA), and cerebral infarction without residual deficits
CPT/HCPCS: 93005; 99285; 36415 ×2; 82553; 82962 ×2; 82550; 85025 ×2; 85610; 85730; 80048; 80053; 84484; 83036; 93880; 70551; 71045; 70450; 93010; 97162; 97166; G0378 ×2; A9270 ×17; J1644 ×2; J7030; J3490

== ENCOUNTER → 2018-12-08 | Outpatient (CLI) | payer MEDICARE, BC ==
[2018-12-08 10:46] LABS: HEMATOCRIT 34.4 % (36.0-47.0); HEMOGLOBIN 11.8 g/dL (12.0-15.5); MEAN CORPUSCULAR HEMOGLOBIN 35.3 pg (27.0-33.4); MEAN CORPUSCULAR HGB CONC 34.4 g/dL (32.0-36.0); MEAN CORPUSCULAR VOLUME 103 fl (80-97); PLATELET COUNT 255 10^3/uL (150-450); RED BLOOD COUNT 3.35 10^6/uL (3.72-5.28); RED CELL DISTRIBUTION WIDTH 18.6 % (11.5-14.0); WHITE BLOOD COUNT 2.6 10^3/uL (4.0-10.5)
[2018-12-08 11:10] LABS: ALBUMIN 4.1 g/dL (3.5-5.0); ALKALINE PHOSPHATASE 61 U/L (38-126); ANION GAP 10 (5-19); ASPARTATE AMINO TRANSFERASE 30 U/L (14-36); BILIRUBIN,DIRECT 0.6 mg/dL (0.0-0.4); BILIRUBIN,TOTAL 0.7 mg/dL (0.2-1.3); BLOOD UREA NITROGEN 13 mg/dL (7-20); CALCIUM 9.8 mg/dL (8.4-10.2); CARBON DIOXIDE 29 mmol/L (22-30); CHLORIDE 92 mmol/L (98-107); GLUCOSE 126 mg/dL (75-110); POTASSIUM 4.9 mmol/L (3.6-5.0); TOTAL PROTEIN 7.5 g/dL (6.3-8.2)
== END ==
LOC: OD 10:13
PROVIDERS: ATTEND Internal Medicine Gastroenterology
DX: K51.90 Ulcerative colitis, unspecified, without complications (principal); Z79.899 Other long term (current) drug therapy
CPT/HCPCS: 36415; 80048; 80076; 85027

== ENCOUNTER → 2019-01-27 | Outpatient (CLI) | payer MEDICARE, BC ==
[2019-01-27 11:09] LABS: ABSOLUTE BASOPHILS # (AUTO) 0.1 10^3/uL (0.0-0.2); ABSOLUTE LYMPHOCYTES (AUTO) 0.6 10^3/uL (0.5-4.7); ABSOLUTE MONOCYTES (AUTO) 0.6 10^3/uL (0.1-1.4); ABSOLUTE NEUT (AUTO) 3.1 10^3/uL (1.7-8.2); BASOPHILS % (AUTO) 1.3 % (0-2); EOSINOPHILS % (AUTO) 0.1 % (0-6); HEMATOCRIT 36.8 % (36.0-47.0); HEMOGLOBIN 12.6 g/dL (12.0-15.5); MEAN CORPUSCULAR HEMOGLOBIN 33.7 pg (27.0-33.4); MEAN CORPUSCULAR HGB CONC 34.2 g/dL (32.0-36.0); MEAN CORPUSCULAR VOLUME 99 fl (80-97); MONOCYTES % (AUTO) 14.7 % (3-13); PLATELET COUNT 286 10^3/uL (150-450); RED BLOOD COUNT 3.73 10^6/uL (3.72-5.28); SEGMENTED NEUTROPHILS % (AUTO) 70.9 % (42-78); TOTAL CELLS COUNTED % (AUTO) 100 %; WHITE BLOOD COUNT 4.4 10^3/uL (4.0-10.5)
[2019-01-27 11:42] LABS: ALBUMIN 4.2 g/dL (3.5-5.0); ALKALINE PHOSPHATASE 52 U/L (38-126); ANION GAP 13 (5-19); ASPARTATE AMINO TRANSFERASE 25 U/L (14-36); BILIRUBIN,DIRECT 0.5 mg/dL (0.0-0.4); BILIRUBIN,TOTAL 0.6 mg/dL (0.2-1.3); BLOOD UREA NITROGEN 12 mg/dL (7-20); CALCIUM 9.5 mg/dL (8.4-10.2); CARBON DIOXIDE 32 mmol/L (22-30); CHLORIDE 87 mmol/L (98-107); GLUCOSE 119 mg/dL (75-110); POTASSIUM 3.6 mmol/L (3.6-5.0); TOTAL PROTEIN 7.4 g/dL (6.3-8.2); TRIGLYCERIDES 173 mg/dL (<150)
[2019-01-27 11:50] LABS: CHOLESTEROL 335.25 mg/dL (0-200); VLDL CHOLESTEROL 34.6 mg/dL (10-31)
[2019-01-27 11:53] LABS: DIRECT LDL 224 mg/dL (<100)
== END ==
LOC: OD 09:39
PROVIDERS: ATTEND Internal Medicine
DX: I10 Essential (primary) hypertension (principal); E78.2 Mixed hyperlipidemia; D63.8 Anemia in other chronic diseases classified elsewhere; R53.83 Other fatigue
CPT/HCPCS: 36415; 80053; 80061; 84443; 85025

== ENCOUNTER → 2019-02-16 | Outpatient (CLI) | payer MEDICARE, BC ==
--- NOTE | 2019-02-16 17:02 | WOMENS IMAGING REPORT ---
EXAM DESCRIPTION: BONE DENSITY HIP/SPINE COMPLETED DATE/TIME: 02/16/2019 1:54 pm REASON FOR STUDY: Z78.0 ASYMPTOMATIC MENOPAUSAL STATE Z12.31 ENCNTR SCREEN MAMMOGRAM FOR MALIGNANT NEOPLASM OF PAOLO Z78.0 ASYMPTOMATIC MENOPAUSAL STATE COMPARISON: Multiple since 2004, most recently 2013 TECHNIQUE: Dual-Energy X-ray Absorptiometry (DEXA) of the AP Spine and Hip. LIMITATIONS: None. FINDINGS: LUMBAR SPINE: The bone mineral density (BMD) measured from L1-L4 in the AP projection correlates with a T-score of +0.8, which is normal as defined by the World Health Organization. BMD Change vs Baseline: Not statistically significant HIP: The bone mineral density (BMD) measured in the left femoral neck at the hip correlates with a T-score of -1.8, which is osteopenic as defined by the World Health Organization. BMD Change vs Baseline: This represents a 20% decrease in bone density since 2004, and a 16% decreas e in bone density since 2013 10 year Fracture Risk Assessment: Major Osteoporotic Fracture: Not available. Hip Fracture: Not available. IMPRESSION: 1. LUMBAR SPINE WHO CLASSIFICATION: Normal 2. HIP WHO CLASSIFICATION: Osteopenic OVERALL ASSESSMENT: WHO CLASSIFICATION: Osteopenic COMMENT: The World Health Organization defines low BMD as follows: T-score: Normal: Greater than -1.0 Osteopenia: Between -1.0 and -2.5 Osteoporosis: Less than -2.5 without fractures Established osteoporosis: Less than -2.5 with fractures In general, you may wish to consider: Diagnosis Treatment Follow-up DEXA Normal BMD Prevention 2-3 years Osteopenia Prevention/Therapy 1-2 years Osteoporosis Therapy Yearly TECHNICAL DOCUMENTATION: JOB ID: [id number] [employer]- All Rights Reserved Reading location - IP/workstation name: [email or web address]
--- NOTE | 2019-02-17 09:56 | WOMENS IMAGING REPORT ---
EXAM DESCRIPTION: 3D SCREENING MAMMO BILAT COMPLETED DATE/TIME: 02/16/2019 1:54 pm REASON FOR STUDY: Z12.31 ENCOUNTER FOR SCREENING MAMMOGRAM FOR MALIGNANT NEOPLASM OF BREAST Z12.31 ENCNTR SCREEN MAMMOGRAM FOR MALIGNANT NEOPLASM OF PAOLO Z78.0 ASYMPTOMATIC MENOPAUSAL STATE COMPARISON: Multiple since 2008 EXAM PARAMETERS: Views: Standard craniocaudal and mediolateral oblique views of each breast recorded using digital acquisition and breast tomosynthesis. Read with the assistance of CAD. .[facility] - [email or web address] Public Information Relations Manager Version 9.2 LIMITATIONS: None. FINDINGS: No suspicious masses, suspicious calcifications or architectural distortion. No areas of c oncern. IMPRESSION: NEGATIVE MAMMOGRAM. BIRADS 1. BREAST DENSITY: b. There are scattered areas of fibroglandular density. BIRAD: ASSESSMENT: 1 NEGATIVE RECOMMENDATION: ROUTINE SCREENING Please continue yearly bilateral screening mammography/tomosynthesis in January 2020 COMMENT: The patient has been notified of the results by letter per MQSA requirements. Additional no tification policies are in place for contacting patient with suspicious or incomplete findings. Quality ID #[id number]: The [employer] recommends an annual screening mammogram for women aged 40 years or over. This facility utilizes a reminder system to ensure that all patients receive reminder letters, and/or direct phone calls for appointments. This includes reminders for routine scr eening mammograms, diagnostic mammograms, or other Breast Imaging Interventions when appropriate. Th is patient will be placed in the appropriate reminder system. TECHNICAL DOCUMENTATION: FINDING NUMBER: (1) ASSESSMENT: (1) JOB ID: [id number] [employer] All Rights Reserved Reading location - IP/workstation name: [email or web address]
== END ==
LOC: WI 13:23
PROVIDERS: ATTEND Internal Medicine
DX: Z12.31 Encounter for screening mammogram for malignant neoplasm of breast (principal); Z78.0 Asymptomatic menopausal state
CPT/HCPCS: 77063; 77067; 77080

== ENCOUNTER → 2019-04-08 | Outpatient (CLI) | payer MEDICARE, BC ==
[2019-04-08 15:40] LABS: ABSOLUTE BASOPHILS # (AUTO) 0.1 10^3/uL (0.0-0.2); ABSOLUTE LYMPHOCYTES (AUTO) 0.9 10^3/uL (0.5-4.7); ABSOLUTE MONOCYTES (AUTO) 0.5 10^3/uL (0.1-1.4); ABSOLUTE NEUT (AUTO) 2.4 10^3/uL (1.7-8.2); BASOPHILS % (AUTO) 1.4 % (0-2); EOSINOPHILS % (AUTO) 0.2 % (0-6); HEMATOCRIT 37.2 % (36.0-47.0); HEMOGLOBIN 13.1 g/dL (12.0-15.5); LYMPHOCYTES % (AUTO) 23.9 % (13-45); MEAN CORPUSCULAR HEMOGLOBIN 36.6 pg (27.0-33.4); MEAN CORPUSCULAR HGB CONC 35.1 g/dL (32.0-36.0); MEAN CORPUSCULAR VOLUME 105 fl (80-97); MONOCYTES % (AUTO) 13.2 % (3-13); PLATELET COUNT 278 10^3/uL (150-450); RED BLOOD COUNT 3.56 10^6/uL (3.72-5.28); RED CELL DISTRIBUTION WIDTH 16.3 % (11.5-14.0); SEGMENTED NEUTROPHILS % (AUTO) 61.3 % (42-78); TOTAL CELLS COUNTED % (AUTO) 100 %; WHITE BLOOD COUNT 3.9 10^3/uL (4.0-10.5)
[2019-04-08 15:59] LABS: ALBUMIN 4.6 g/dL (3.5-5.0); ALKALINE PHOSPHATASE 65 U/L (38-126); ASPARTATE AMINO TRANSFERASE 34 U/L (14-36); BILIRUBIN,DIRECT 0.6 mg/dL (0.0-0.4); TOTAL PROTEIN 8.3 g/dL (6.3-8.2)
== END ==
LOC: OD 14:49
PROVIDERS: ATTEND Internal Medicine Gastroenterology
DX: K51.90 Ulcerative colitis, unspecified, without complications (principal)
CPT/HCPCS: 36415; 80076; 85025

== ENCOUNTER → 2019-04-21 | Outpatient (CLI) | payer MEDICARE, BC ==
[2019-04-23 10:22] LABS: ALBUMIN 4.4 g/dL (3.5-5.0); ALKALINE PHOSPHATASE 62 U/L (38-126); ANION GAP 11 (5-19); ASPARTATE AMINO TRANSFERASE 34 U/L (14-36); BILIRUBIN,DIRECT 0.6 mg/dL (0.0-0.4); BILIRUBIN,TOTAL 0.9 mg/dL (0.2-1.3); BLOOD UREA NITROGEN 13 mg/dL (7-20); CALCIUM 10.2 mg/dL (8.4-10.2); CARBON DIOXIDE 32 mmol/L (22-30); CHLORIDE 87 mmol/L (98-107); CHOLESTEROL 180.54 mg/dL (0-200); GLUCOSE 108 mg/dL (75-110); POTASSIUM 5.1 mmol/L (3.6-5.0); TOTAL PROTEIN 7.8 g/dL (6.3-8.2); TRIGLYCERIDES 150 mg/dL (<150)
[2019-04-23 10:33] LABS: DIRECT LDL 94 mg/dL (<100)
== END ==
LOC: OD 10:05
PROVIDERS: ATTEND Internal Medicine Cardiovascular Disease
DX: Z53.9 Procedure and treatment not carried out, unspecified reason (principal)
CPT/HCPCS: 36415; 80053; 80061

== ENCOUNTER 2019-06-03 00:03 | Emergency (ER) | payer MEDICARE, BC ==
--- NOTE | 2019-06-03 00:21 | ER Document Report ---
ED General - General Chief Complaint: S/S of Possible Stroke Stated Complaint: POSSIBLE STROKE Time Seen by Provider: 06/03/19 00:14 Primary Care Provider: ROMULO RANGEL MD [Primary Care Provider] - Follow up as needed Mode of Arrival: Stretcher Information source: Patient, Emergency Med Personnel Notes: 79-year-old female arrives by EMS with chief complaint of weakness of her left upper and left lower extremity as well as numbness initially to left t high but by 0055 patient had numbness of her right face with some facial droop. 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 I was called by Dr. Joshi radiologist because of a mass in her right parietal area 5 x 3 x 4 cm patient is never had seizures before and there is no midline shift. I discussed this case with Ana at transfer center at 0100 and the images were sent by [facility] to [facility] and Ana reports the ICU staff advises at this time no need for ICU feeling the patient is stable and therefore neurosurgeon was consulted TRAVEL OUTSIDE OF THE [place] IN LAST 30 DAYS: No - HPI Onset: Just prior to arrival Onset/Duration: Sudden Quality of pain: Other - Left-sided weakness to include left leg and left arm with fall with left anabaptism bruising hematoma and hematoma bruising to left anterior shoulder patient is able to move all extremities including her left upper extremity with good refrigerator cabinetmaker bilaterally Severity: Mild Pain Level: 1 Associated symptoms: Other - numbness Exacerbated by: Movement Relieved by: Denies Similar symptoms previously: Yes - September 2018 here at this hospital Recently seen / treated by doctor: No - Related Data Allergies/Adverse Reactions: erythromycin base [Erythromycin Base] Allergy (Verified 06/03/19 01:43) infliximab [From Remicade] Allergy (Verified 06/03/19 01:43) CHF latex [Latex] Allergy (Verified 06/03/19 01:43) Nilvueo-Eoo-Pku Reductase Inhibitor Allergy (Verified 06/03/19 01:43) IVP DYE Allergy (Uncoded 06/03/19 01:43) ITCHING/HIVES SHELL FISH Allergy (Uncoded 06/03/19 01:43) ITCHING/HIVES Past Medical History - General Information source: Patient, Emergency Med Personnel - Social History Smoking Status: Unknown if Ever Smoked Cigarette use (# per day): No Chew tobacco use (# tins/day): No Smoking Education Provided: No Frequency of alcohol use: None Drug Abuse: None Lives with: Family Family History: Arthritis, CAD, CVA, DM, Hyperlipidemia, Hypertension - Past Medical History Cardiac Medical History: Reports: Hx Atrial Fibrillation, Hx Congestive Heart Failure, Hx Coronary Artery Disease, Hx Heart Attack - CHF D/T REMICADE, Hx Hypercholesterolemia, Hx Hypertension Pulmonary Medical History: Neurological Medical History: Endocrine Medical History: Reports: Hx Diabetes Mellitus Type 2 Renal/ Medical History: Denies: Hx Peritoneal Dialysis GI Medical History: Reports: Hx Ulcer - COLON, Hx Ulcerative Colitis Musculoskeletal Medical History: Reports Hx Arthritis, Reports Hx Musculoskeletal Deformity - scoliosis, kyphosis Psychiatric Medical History: Denies: Hx Depression Infectious Medical History: Past Surgical History: Reports: Hx Appendectomy, Hx Cardiac Catheterization, Hx Coronary Stent, Hx Hysterectomy, Hx Oral Surgery. Denies: Hx Mastectomy, Hx Open Heart Surgery, Hx Pacemaker - Immunizations Immunizations up to date: Yes Hx Diphtheria, Pertussis, Tetanus Vaccination: Yes Hx Pneumococcal Vaccination: 03/31/07 Review of Systems - Review of Systems Constitutional: See HPI, Weakness EENT: See HPI, Other - Left anabaptism bruising and pain Cardiovascular: No symptoms reported Respiratory: No symptoms reported Gastrointestinal: No symptoms reported Genitourinary: No symptoms reported Female Genitourinary: No symptoms reported Musculoskeletal: See HPI, Other - Left upper extremity and left lower extremity weakness but refrigerator cabinetmaker are 5 out of 5 and patient moving all extremities including left foot. She fell prior to arrival Skin: No symptoms reported Hematologic/Lymphatic: No symptoms reported Neurological/Psychological: No symptoms reported Physical Exam - Vital signs Vitals: Temp Pulse Resp BP Pulse Ox 97.8 F 63 12 172/54 H 98 06/03/19 00:11 06/03/19 00:11 06/03/19 00:11 06/03/19 00:11 06/03/19 00:11 - HEENT Head: Normocephalic, Ecchymosis, Tenderness Eyes: Normal Conjunctiva: Normal Cornea: Normal Extraocular movements intact: Yes Eyelashes: Normal Pupils: PERRL Nasal: Normal Mouth/Lips: Other - Droop of right facial with numbness around perioral area Mucous membranes: Normal Pharynx: Normal Neck: Normal - Respiratory Respiratory status: No respiratory distress Chest status: Nontender Breath sounds: Normal Chest palpation: Normal - Cardiovascular Rhythm: Regular Heart sounds: Normal auscultation Murmur: No Friction rub: No Sha's crunch: No - Abdominal Inspection: Normal Distension: No distension Bowel sounds: Normal Tenderness: Nontender Organomegaly: No organomegaly - Back Back: Normal - Extremities General upper extremity: Other - [id number]! General lower extremity: Other - Weakness in left lower extremity Shoulder: Tender - Ecchymosis to left shoulder where she impacted Course - Vital Signs Vital signs: Temp Pulse Resp BP Pulse Ox 97.7 F 64 18 154/59 H 97 06/03/19 03:18 06/03/19 03:01 06/03/19 03:01 06/03/19 03:01 06/03/19 03:01 - Laboratory Result Diagrams: 06/03/19 00:32 06/03/19 00:32 Laboratory results interpreted by me: 06/03/19 06/03/19 06/03/19 00:32 00:32 00:32 RBC 3.61 L MCV 101 H MCH 34.7 H RDW 16.0 H Monocytes % (Manual) 20 H Sodium 125.5 L Chloride 88 L Creatinine 0.51 L Glucose 134 H POC Glucose 139 H AST 41 H Urine Protein Ur Leukocyte Esterase 06/03/19 02:55 RBC MCV MCH RDW Monocytes % (Manual) Sodium Chloride Creatinine Glucose POC Glucose AST Urine Protein 100 H Ur Leukocyte Esterase TRACE H - Diagnostic Test Radiology reviewed: Reports reviewed - I got this report from Dr. 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 Carlos Grant neurosurgeon at [facility] at 0200 and he advises he will accept this patient on his service. Ana the transfer appliance service technician advises at 0202 that he will work on a bed. Discharge - Discharge Clinical Impression: Mass of brain, Stroke-like symptoms, Hyponatremia Condition: Good Disposition: [facility] Referrals: ROMULO RANGEL MD [Primary Care Provider] - Follow up as needed
--- NOTE | 2019-06-03 00:39 | RADIOLOGY REPORT (SQ) ---
CLINICAL HISTORY: FALL, POSSIBLE STROKE COMPARISON: 12/17/2013. TECHNIQUE: XR CHEST 1 VIEW 06/03/2019 12:00 AM HOCKEY PLAYER FINDINGS: Cardiac silhouette is normal in size. Lungs are clear without consolidation, atelectasis, mass or edema. There is no pleural effusion. There is no pneumothorax. There are no acute osseous findings. The right diaphragm is elevated IMPRESSION: Clear lungs.
--- NOTE | 2019-06-03 00:40 | RADIOLOGY REPORT (SQ) ---
CLINICAL HISTORY: FALL, POSSIBLE STROKE COMPARISON: None. TECHNIQUE: XR SHOULDER 2 OR MORE VIEWS 06/03/2019 12:00 AM ENDOSCOPY SPECIALTY TECHNICIAN FINDINGS: There is chronic appearing deformity of the lateral aspect of the left clavicle. Joint spaces are preserved. Soft tissues are unremarkable. IMPRESSION: No acute osseous findings.
--- NOTE | 2019-06-03 00:51 | RADIOLOGY REPORT (SQ) ---
PROCEDURE: CLINICAL HISTORY: 79 years Female stroke COMPARISON: 10/01/2018. TECHNIQUE: Contiguous axial CT images obtained through the brain without IV contrast. This exam was performed according to our department optimization program which includes automated exposure control, adjustment of the mA and/or kv according to patient size and/or use of iterative reconstruction technique. FINDINGS: The ventricles and sulci are prominent consistent with atrophic changes. Microvascular ischemic changes. Involving the right parietal, posterior frontal and segments of the occipital lobe. There is an underlying heterogeneous mass measuring roughly 5.1 cm AP by 3.6 cm transverse. Recommend contrast-enhanced MRI for further evaluation. This extends over a vertical distance of 4 cm. Mass effect resulting in sulcal effacement and partial effacement of the right ventricle. There is minimal bulging of the posterior aspect of the falx without significant shift of midline structures. No acute hemorrhage. Atherosclerotic calcifications. No fluid or significant mucosal thickening in the visualized paranasal sinuses. No depressed calvarial fractures. IMPRESSION: Large necrotic appearing mass in the right parietal lobe with surrounding vasogenic edema resulting in sulcal and ventricular effacement with edema extending into the posterior frontal, occipital and posterior temporal lobe. Recommend further evaluation with contrast-enhanced study or contrast-enhanced MRI. Findings may reflect glioblastoma multiform. Other primary COMPRESSOR ENGINEER tumor or metastatic focus not excluded. Generalized atrophy with microvascular ischemic changes. Findings were discussed with Dr. Juan at 10:50 PM central time.
[2019-06-03 00:58] LABS: HEMATOCRIT 36.5 % (36.0-47.0); HEMOGLOBIN 12.5 g/dL (12.0-15.5); MEAN CORPUSCULAR HEMOGLOBIN 34.7 pg (27.0-33.4); MEAN CORPUSCULAR HGB CONC 34.3 g/dL (32.0-36.0); MEAN CORPUSCULAR VOLUME 101 fl (80-97); PLATELET COUNT 208 10^3/uL (150-450); RED BLOOD COUNT 3.61 10^6/uL (3.72-5.28); WHITE BLOOD COUNT 4.6 10^3/uL (4.0-10.5)
[2019-06-03 00:59] LABS: ALKALINE PHOSPHATASE 61 U/L (38-126); ANION GAP 8 (5-19); ASPARTATE AMINO TRANSFERASE 41 U/L (14-36); BILIRUBIN,DIRECT 0.3 mg/dL (0.0-0.4); BILIRUBIN,TOTAL 1.1 mg/dL (0.2-1.3); BLOOD UREA NITROGEN 9 mg/dL (7-20); CALCIUM 9.9 mg/dL (8.4-10.2); CARBON DIOXIDE 30 mmol/L (22-30); CHLORIDE 88 mmol/L (98-107); GLUCOSE 134 mg/dL (75-110); POTASSIUM 4.5 mmol/L (3.6-5.0); TOTAL PROTEIN 7.2 g/dL (6.3-8.2)
[2019-06-03 01:02] LABS: PROTHROMBIN TIME 13.2 SEC (11.4-15.4)
[2019-06-03 01:03] LABS: ALCOHOL < 10 mg/dL (NONE DETECTED)
[2019-06-03] MEDS ORDERED: DEXAMETHASONE SOD PHOS INJ 10 MG/1 ML VIAL IV ONE (01:14)
[2019-06-03] MEDS ORDERED: LEVETIRACETAM 1000 MG/NACL-ISO 1,000 MG/100 ML RTUPB IV ONE (01:14)
[2019-06-03 01:18] LABS: ABSOLUTE LYMPHOCYTES# (MANUAL) 1.2 10^3/uL (0.5-4.7); ABSOLUTE MONOCYTES # (MANUAL) 0.9 10^3/uL (0.1-1.4); BASOPHILS % (MANUAL) 0 % (0-2); EOSINOPHILS % (MANUAL) 1 % (0-6); LYMPHOCYTES % (MANUAL) 25 % (13-45); MONOCYTES % (MANUAL) 20 % (3-13); SEGMENTED NEUTROPHILS % (MAN) 54 % (42-78); TOTAL CELLS COUNTED 100
[2019-06-03 01:19] LABS: ANISOCYTOSIS 1+; PLATELET COMMENT ADEQUATE; TOXIC VACUOLATION PRESENT
[2019-06-03] MEDS ORDERED: NORMAL SALINE 1000 ML 1,000 ML IV ONE (01:19)
[2019-06-03 03:11] LABS: APPEARANCE,URINE CLEAR; BILIRUBIN,URINE NEGATIVE (NEGATIVE); COLOR,URINE YELLOW; GLUCOSE, URINE NEGATIVE (NEGATIVE); KETONES,URINE NEGATIVE (NEGATIVE); LEUKOCYTE ESTERASE,URINE TRACE (NEGATIVE); NITRITE,URINE NEGATIVE (NEGATIVE); PROTEIN,URINE 100 mg/dL (NEGATIVE); URINE SPECIFIC GRAVITY 1.003; UROBILINOGEN,URINE NEGATIVE mg/dL (<2.0)
[2019-06-03 03:18] VITALS: BP 154/59
[2019-06-03 03:25] LABS: URINE AMPHETAMINES SCREEN NEGATIVE; URINE BARBITURATES SCREEN NEGATIVE; URINE BENZODIAZEPINES SCREEN NEGATIVE; URINE COCAINE SCREEN NEGATIVE; URINE MARIJUANA (THC) SCREEN NEGATIVE; URINE METHADONE SCREEN NEGATIVE; URINE PHENCYCLIDINE SCREEN NEGATIVE
--- NOTE | 2019-06-03 07:29 | EKG REPORT ---
SEVERITY:- ABNORMAL ECG - SINUS RHYTHM PROBABLE ANTEROSEPTAL INFARCT, AGE INDETERM : Confirmed by: Jimbo Tafoya MD 03-Jun-2019 07:28:33
== END 2019-06-03 03:25 | disposition short-term general hospital (02) ==
LOC: ER 00:03
DX: G93.89 Other specified disorders of brain (principal); E87.1 Hypo-osmolality and hyponatremia; S60.212A Contusion of left wrist, initial encounter; S40.012A Contusion of left shoulder, initial encounter; R20.0 Anesthesia of skin; M62.81 Muscle weakness (generalized); W19.XXXA Unspecified fall, initial encounter; Z88.8 Allergy status to other drugs, medicaments and biological substances; I50.9 Heart failure, unspecified; I25.10 Atherosclerotic heart disease of native coronary artery without angina pectoris; I25.2 Old myocardial infarction; I11.0 Hypertensive heart disease with heart failure; E11.9 Type 2 diabetes mellitus without complications
CPT/HCPCS: 93005; 36415; 82962; 80307 ×2; 83735; 85025; 85610; 80053; 81001; 71045; 73030; 70450; 93010; J7030; J1100; J1953; 96361; 96365; 96375; 99291; 99292

== ENCOUNTER → 2019-07-15 | Outpatient (CLI) | payer MEDICARE, BC ==
--- NOTE | 2019-07-15 15:59 | RADIOLOGY REPORT (SQ) ---
EXAM DESCRIPTION: MRI HEAD COMBO IMAGES COMPLETED DATE/TIME: 07/15/2019 3:32 pm REASON FOR STUDY: C71.3 MALIGNANT NEOPLASM OF PARIETAL LOBE C71.3 MALIGNANT NEOPLASM OF PARIETAL LO BE COMPARISON: 10/01/2018 TECHNIQUE: Multiplanar imaging includes noncontrasted T1, T2, FLAIR, diffusion with ADC map and post gadolinium contrast T1 sequences. Images stored on PACS. CONTRAST TYPE AND DOSE: 20 mL Dotarem. RENAL FUNCTION: Not indicated. ACR Type II contrast agent associated with few, if any, unconfounded cases of NSF LIMITATIONS: None. FINDINGS: There is a right parietal craniotomy. There is a surgical cavity measuring about 5.5 x 4. 5 cm AP by transverse diameter by 5.4 cm craniocaudal diameter. Heterogeneous intermediate/high sign al on T1 precontrast with minimal enhancement. Less mass effect on the occipital horn compared to re cent CT. No hemorrhage. No significant extra-axial fluid collection. Old dystrophic calcification right cerebellum, bright on T1 with no enhancement. IMPRESSION: Expected postoperative appearance status post right parietal tumor resection. No eviden ce of postoperative complication. EVIDENCE OF ACUTE STROKE: NO. TECHNICAL DOCUMENTATION: JOB ID: [id number] [employer] All Rights Reserved Reading location - IP/workstation name: [email or web address]
== END ==
LOC: RAD 13:47
PROVIDERS: ATTEND Family Medicine
DX: C71.3 Malignant neoplasm of parietal lobe (principal)
CPT/HCPCS: 70553; A9576